=== PATIENT | female | born 1985 | race Caucasian/White ===

== ENCOUNTER 2022-01-05 05:53 | Emergency (ER) | payer OTHER, SELFPAY ==
[2022-01-05 05:54] VITALS: BP 115/84; PULSE 84; RESP 15; TEMP 36.5; O2SAT 100; BMI 24.8
[2022-01-05 05:58] VITALS: O2SAT 97
--- NOTE | 2022-01-05 06:02 | RAD_ITS ---
STUDY: X-RAY CHEST REASON FOR EXAM: Female, 36 years old. Cough, change in voice TECHNIQUE: XR Chest 2 Views COMPARISON: None FINDINGS: There is no demonstrated pleural abnormality. Normal size heart. Normal mediastinum and wilmer. Normal visualized pulmonary arteries. Normal visualized aortic arch and descending thoracic aorta. Normal visualized thoracic spine. Normal visualized ribs, clavicles, and shoulders. There is no demonstrated abnormality of the visualized soft tissue structures of the upper abdomen. RAD/Chest PA and Lateral IMPRESSION: There are no acute findings. Electronically Signed: Victor Hugo Negron MD at 14:20 EDT ,
--- NOTE | 2022-01-05 06:08 | EDS_ITS ---
HPI HPI - URI History of Present Illness Chief Complaint: Cough Detail of Chief Complaint: Cough x4 days, change in voice Informant: patient Onset/Context/Timing Onset: Days (Onset of illness 4 days ago) Context: Sudden Onset Timing: Continuous and Waxes and wanes Quality: Hoarse voice, barky cough, productive cough in a.m. only Location: Respiratory Current Severity: Mild Maximum Severity: Moderate Worsened by: Not Worsened By Swallowing, Eating Solids and Drinking Liquids Relieved by: Not Relieved By Tylenol and NSAIDs Associated Symptoms Associated Symptoms: Positive for Nasal Congestion and Productive Cough; Negative for Headache, Sinus Pressure, Myalgias, Nausea, Vomiting, Diarrhea, Shortness of Breath, Chest Pain, Nonproductive cough and Hemoptysis Narrative Narrative: Patient is a 36-year-old female with no significant past medical history. She is a non-smoker. She presents with cough that started 4 days ago. She states the cough is productive in the morning, only. She denies documented fever. She has mild nasal congestion. She denies headache. She also reports hoarse voice and barky cough. She has no problems with swallowing. She denies chest discomfort. She denies dyspnea or dyspnea on exertion. She denies history of VTE. She denies leg pain, swelling discoloration. She denies GI symptoms. She denies urologic symptoms. She denies recent ill contacts. She has been immunized for the flu and COVID. Prior similar symptoms: No Recent Illness/Hospitalization: No ROS ROS ED Constitutional Constitutional ED: Denies chills, fever(s), subjective, sweats or weight loss Eyes Eyes: Denies blurry vision, change in vision or diplopia ENT ENT ED: Reports sore throat; Denies ear pain or rhinorrhea Cardiovascular Cardiovascular: Denies chest pain, orthopnea, palpitations or paroxysmal nocturnal dyspnea Respiratory/Chest Respiratory/Chest: Reports cough and sputum; Denies dyspnea, dyspnea on exertion, orthopnea or paroxysmal nocturnal dyspnea Gastrointestinal Gastrointestinal: Denies abdominal pain, diarrhea, nausea or vomiting Genitourinary Genitourinary ED: Reports LMP (females 10-50) Details: Comment: (Menses started November 13. Normal duration and flow.); Denies dysuria, hematuria or urinary frequency Musculoskeletal Musculoskeletal: Denies back pain, myalgias or neck pain Integumentary Denies rash Neurologic Neurologic: Denies headache(s) or weakness Hematologic/Lymphatic Hematologic/Lymphatic: Denies easy bleeding or easy bruising PFSH PFSH Medical History no medical history no medical history Home Medications NK 01/05/22 [History Last Taken Unknown] hydrocodone-homatropine [Hycodan] 5 ml PO Q6H PRN 3 Days #60 ml 01/05/22 [Rx Last Taken Unknown] Allergy/AdvReac Type Severity Reaction Status Date / Time No Known Allergies Allergy Verified 01/05/22 05:56 Social History (Updated 01/05/22 @ 06:[address] iVjay Wallace MD) household members: spouse Smoking Status: Never smoker substance use type: does not use EXAM Physical Exam Const Vital Signs: 01/05/22 05:54 01/05/22 05:58 Temperature 97.7 F L Temperature Source Temporal Pulse Rate 84 Respiratory Rate 15 Respiratory Effort Normal Non-Labored Respiratory Depth Normal Respiratory Pattern Normal Blood Pressure 115/84 H Blood Pressure Mean 94 Pulse Ox 100 Oxygen Delivery Method Room Air Room Air Positive well nourished and well developed General Appearance ED: well developed and NAD; Negative for cyanotic, diaphoretic or pallor HEENT Reports moist mucous membranes normocephalic and atraumatic External Ear: external ears normal and no preauricular adenopathy External Auditory Canal: EAC's normal Tympanic Membrane ED: Yes TM's normal bilaterally Throat: posterior oropharynx normal Eyes PERRL and EOMs intact bilaterally General Eye ED: Negative for pale conjunctiva or scleral icterus Neck No no lymphadenopathy, supple, no meningeal signs and no JVD Neck Narrative: Trachea is midline. There is no inspiratory or expiratory stridor. General: lymphadenopathy anterior cervical (1 node noted right and left side. Node is mobile.); Negative for anterior neck swelling Resp normal respiratory effort and clear to auscultation bilaterally Cardio S1 normal heart sound, S2 normal heart sound and no murmurs Rate: regular rate Rhythm: regular rhythm GI non-tender, non-distended and no masses Auscultation: normoactive bowel sounds Palpation: soft Extremity normal to inspection General Extremety ED: Negative for cyanosis General Extremity: Negative for cyanosis Neuro oriented x3 and CN's II-XII intact bilaterally Sensorium / Orientation: alert Psych mental status grossly normal Skin General Skin Exam: Negative for jaundice or pallor Lesions: no lesions Rashes: no rashes MDM MDM MDM Narrative Medical decision making narrative: With minimal nasal congestion cough hoarse voice cervical lymphadenopathy suspect this is a viral upper respiratory infection. Will screen for COVID and will obtain chest x-ray. COVID test is negative. With a normal chest x-ray, negative COVID and r espiratory symptoms with bilateral cervical lymphadenopathy and hoarse voice suspect acute viral illness. Radiography Diagnostic Testin view chest x-ray independently interpreted by me at 0616 is normal. Cardiac silhouette and size normal. Perihilar region normal. Lung parenchyma normal. Osseous structures normal. Awaiting COVID swab result Discharge Plan Triage Chief Complaint: Cough ED Provider: Vijay Wallace Dx/Rx/DC Orders Clinical Impression: Acute upper respiratory infection, Anterior cervical adenopathy Instructions: ED URI, Viral, No Abx (Adult) Prescriptions: New hydrocodone-homatropine [Hycodan] 5-1.5 mg/5 mL (5 mL) syrup 5 ml PO Q6H PRN (Reason: cough) 3 Days Qty: 60 RF: 0 No Action NK RF: 0 Primary Care Provider: Care Physician,No Primary Referrals: Fast,Carla, DO [NON-STAFF] - 1 Week if not improving Care Physician,No Primary [Primary Care Provider] - Disposition Disposition: Home, Self Care
[2022-01-05 06:53] VITALS: BP 115/84; PULSE 84; RESP 15; O2SAT 100
== END 2022-01-05 07:06 | disposition home or self-care (01) ==
PROVIDERS: Emergency Provider Emergency Medicine; Visit Provider Emergency Medicine
DX: J06.9 Acute upper respiratory infection, unspecified (principal); R59.0 Localized enlarged lymph nodes
CPT/HCPCS: 71046; 87811; 99282

== ENCOUNTER 2023-03-05 19:59 | Emergency (ER) | payer OTHER, SELFPAY ==
[2023-03-05 20:00] VITALS: BP 124/85; PULSE 85; RESP 16; TEMP 36.6; O2SAT 98; BMI 21.8
--- NOTE | 2023-03-05 20:12 | US_ITS ---
INDICATION: preg, pelvic pain, ttp RLQ COMPARISON: None. FINDINGS: 83 grayscale ultrasound images obtained both transabdominally and transvaginally, including cinematic series, demonstrate apparent intrauterine measuring at 0.23 cm crown-rump length which corresponds to 6 weeks +0 days. However, no cardiac activity is appreciated. There appears to be yolk sac. Adequate amniotic fluid for gestational age. Placenta cannot be definitively identified at this gestational age. Uterine myometrium demonstrates rounded mixed shadowing hypoechoic lesions, measuring up to 3 cm on the left, consistent with uterine fibroids. Dominant hypoechoic 1.8 cm right ovarian lesion likely corpus luteum. Few small bilateral ovarian follicles are noted. Small amount of cul-de-sac free fluid. US/Transvaginal w/Preg US IMPRESSION: Apparent single intrauterine measuring at 0.23 cm crown-rump length which corresponds to 6 weeks +0 days. However, no cardiac activity is appreciated. Recommend correlation with serial quantitative beta-hCG values as well as short interval follow-up ultrasound to confirm viable intrauterine . Electronically Signed: Marco Dias MD at 21:28 EDT ,
--- NOTE | 2023-03-05 20:13 | EDS_ITS ---
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 She is having upper epigastric pain and lower abdominal pain as well. Nausea, couple episodes of dry heaving in the last couple weeks but mostly just nausea and decreased appetite. No syncopal episodes or dyspnea. No urinary symptoms. PFSH PFSH Medical History no medical history no medical history Home Medications NK 01/05/22 [History Last Taken Unknown] hydrocodone-homatropine 5 mg-1.5 mg/5 mL (5 mL) oral syrup (Hycodan) 5 ml PO Q6H PRN cough 3 days #60 mL 01/05/22 [Rx Last Taken Unknown] Allergy/AdvReac Type Severity Reaction Status Date / Time No Known Allergies Allergy Verified 03/05/23 20:02 Social History household members: spouse Smoking Status: Never smoker substance use type: does not use ROS ROS ED Constitutional Constitutional ED: Denies chills or fever(s) Eyes Eyes: Denies change in vision or diplopia ENT ENT ED: Denies rhinorrhea or sore throat Cardiovascular Cardiovascular: Denies chest pain or palpitations Respiratory/Chest Respiratory/Chest: Denies cough or dyspnea Gastrointestinal Gastrointestinal: Reports abdominal pain; Denies diarrhea, nausea or vomiting Genitourinary Genitourinary ED: Denies dysuria, hematuria or vaginal bleeding Musculoskeletal Musculoskeletal: Denies back pain or neck pain Integumentary Denies abscess or rash Neurologic Neurologic: Denies headache(s), paresthesias or weakness Psychiatric Psychiatric: Denies anxiety or suicidal thoughts EXAM Physical Exam Const Vital Signs: 03/05/23 20:00 Temperature 98 F Temperature Source Temporal Pulse Rate 85 Respiratory Rate 16 Blood Pressure 124/85 H Blood Pressure Mean 98 Pulse Ox 98 Oxygen Delivery Method Room Air Positive well nourished and well developed General Appearance ED: well developed and NAD HEENT Reports moist mucous membranes normocephalic and atraumatic Eyes PERRL and EOMs intact bilaterally Neck full ROM and supple Resp normal respiratory effort and clear to auscultation bilaterally Cardio regular rate, regular rhythm and no murmurs GI non-distended GI Narrative: Mildly tender in epigastrium, moderate-severe tenderness in the right lower quadrant/pelvis, less tender in the suprapubic area. No guarding or rebound tenderness anywhere. Nontender throughout the left side. Auscultation: normoactive bowel sounds Palpation: soft Speculum Exam - Vagina: Negative for vaginal bleeding Back/Spine no CVA tenderness General Back: other FROM Extremity normal to inspection General Extremety ED: Negative for edema, pulses abnormal or tenderness General Extremity: Negative for edema or pulses abnormal Neuro oriented x3, CN's II-XII intact bilaterally and no sensory deficits noted Sensorium / Orientation: awake and alert Motor Exam: strength 5/5 throughout Skin no rashes or lesions noted and no wounds MDM MDM MDM Narrative Medical decision making narrative: Labs and urinalysis were obtained and is patient with tenderness in the right lower quadrant and early indeterminate , primarily to rule out ectopic . Beta-hCG quantitative just over 7600, and transvaginal ultrasound obtained, it shows a single live intrauterine crown-rump length is consistent with about 6-week but no heart tones were able to be measured. She will need to follow-up for repeat quantitative hCG level. Of note, she has a 1.3 cm right ovarian cyst which is consistent with a corpus luteal cyst, which may be related to her discomfort. I think she has much less likely to have appendicitis. She is comfortable she is able to walk without difficulty she does not have a significant leukocytosis. Furthermore, urinalysis unremarkable, she not having any bleeding right now, and her vital signs are normal. Stable for discharge at this time. Close outpatient follow- up with her OB recommended. Discussed with Maylin Stout who is on and agrees, they will have her get a repeat hCG quantitative in 2 days and follow-up in the office. Lab Data Attestation: I reviewed the patient's lab results. Labs: Laboratory Results - last 24 hr 03/05/23 03/05/23 20:25 21:10 WBC 10.8 RBC 4.15 L Hgb 11.2 L Hct 34.0 L MCV 81.9 MCH 27.0 MCHC 32.9 RDW Std Deviation 50.2 H RDW Coeff of Fuad 16.6 H Plt Count 275 MPV 10.0 Immature Gran % (Auto) 0.300 Neut % (Auto) 73.8 H Lymph % (Auto) 15.9 L Bonner % (Auto) 9.3 Eos % (Auto) 0.4 Baso % (Auto) 0.3 Absolute Neuts (auto) 8.0 H Absolute Lymphs (auto) 1.71 Nucleated RBC % 0 Sodium 135 L Potassium 3.5 Chloride 104 Carbon Dioxide 26.0 Anion Gap 5 BUN 9 Creatinine 0.56 Estim Creat Clear Calc 155.23 Est GFR (MDRD) Af Amer 156 Est GFR (MDRD) Non-Af 129 BUN/Creatinine Ratio 16.0 Glucose 118 H Calcium 8.7 Urine Color Yellow Urine Clarity Sl. Cloudy Urine pH 8.0 Ur Specific [place] 1.015 Urine Protein 15 H Urine Glucose (UA) Normal Urine Ketones 50 H Urine Occult Blood Negative Urine Nitrite Negative Urine Bilirubin Negative Urine Urobilinogen Normal Ur Leukocyte Esterase Negative Radiography Diagnostic Testing: Clinical Impression(s) from Imaging Studies Obstetrics Ultrasound 03/05/23 20:12 IMPRESSION: Apparent single intrauterine measuring at 0.23 cm crown-rump length which corresponds to 6 weeks +0 days. However, no cardiac activity is appreciated. Recommend correlation with serial quantitative beta-hCG values as well as short interval follow-up ultrasound to confirm viable intrauterine . Electronically Signed: Marco Dias MD at 21:28 EDT , Discharge Plan Triage Chief Complaint: Female C/O ED Provider: Alex Moran Dx/Rx/DC Orders Clinical Impression: Pelvic pain during in first trimester, antepartum Instructions: ED Abdominal Pain, Early Prescriptions: No Action NK hydrocodone-homatropine [Hycodan] 5-1.5 mg/5 mL (5 mL) syrup 5 ml PO Q6H PRN (Reason: cough) 3 Days Qty: 60 0RF Primary Care Provider: Care Physician,No Primary Referrals: Zara Sadler MD [Med Staff - Active Staff] - 2 Days (In the lab, not the office; they will call you for office appointment) Activity Restrictions/Additional Instructions: Repeat blood test in the lab at [facility] on Sunday. Disposition Disposition: Home, Self Care
[2023-03-05] MEDS: Mag Hydrox/Al Hydrox/Simeth 30 ML UDC PO (20:21)
[2023-03-05] MEDS: Ondansetron 4 MG/2 ML Vial IV (20:21)
[2023-03-05 20:49] LABS: Absolute Lymphocyte Count 1.71 X10^3/uL (0.83-4.51); Basophil# 0.03 X10^3/uL; Basophil% 0.3 % (0-1); Eosinophil# 0.04 X10^3/uL; Eosinophils% 0.4 % (0-5); Hemoglobin 11.2 g/dL (12.0-15.0); Lymphocyte # 1.71 X10^3/ul (0.83-4.51); Lymphocyte % 15.9 % (19-41); Mean Corp Hgb Conc 32.9 g/dL (32-36); Mean Corpuscular Volume 81.9 fL (81-99); Monocyte% 9.3 % (0-10); NRBC Flagged by Analyzer 0 % (0-5); Neutrophil # 7.97 X10^3/uL (2.7-7.7); Neutrophil % 73.8 % (47-70); Platelet Count 275 K/mm3 (150-450); RBC Distribution Width CV 16.6 % (11.6-14.6); RBC Distribution Width SD 50.2 fl (35.1-43.9); Red Blood Count 4.15 M/mm3 (4.2-5.4); White Blood Count 10.8 K/mm3 (4.4-11.0)
[2023-03-05 21:05] LABS: Anion Gap 5 (5-15); BUN 9 mg/dL (7-18); Calcium,Total 8.7 mg/dL (8.5-10.1); Chloride 104 mmol/L (98-107); Creatinine, Serum 0.56 mg/dL (0.55-1.02); EST Glomerular Filtration Rate 129 mL/min (>60); Est Glom Filt Rate - Afr Amer 156 mL/min (>60); Estimated Creatinine Clearance 155.23 ml/min; Glucose 118 mg/dL (74-106); Potassium 3.5 mmol/L (3.5-5.1); Sodium Level 135 mmol/L (136-145)
[2023-03-05 21:15] LABS: Mucous, Urine 0 SEEN /hpf (<or=2+); Red Blood Cells-Urine 0 SEEN /hpf (0-5)
[2023-03-05 21:16] LABS: Color, Urine Yellow (Yellow); Glucose, Dipstick Normal (Normal); Ketone-Dipstick 50 mg/dl (Negative); Leukocyte Esterase-Dipstick Negative /ul (Negative); Nitrite-Dipstick Negative (Negative); Occult Blood-Urine Negative /ul (Negative); Protein-Dipstick 15 mg/dl (Negative); Specific Gravity, Urine 1.015 (1.002-1.030); Urine Bilirubin Dipstick Negative (Negative); Urine Clarity Sl. Cloudy (Clear); Urine Urobilinogen Normal (Normal)
[2023-03-05 21:41] LABS: hCG Titer Quant., Serum 7657 mIU/mL (1-3)
[2023-03-05 21:46] LABS: Bacteria 1+ /hpf (None Seen); Squamous Epithelial Cells - UA 0-5 SEEN /hpf (5-10); White Blood Cells 0-5 SEEN /hpf (0-5)
[2023-03-05] MEDS: Acetaminophen 500 MG Tablet 1000 MG PO (21:47)
== END 2023-03-05 22:08 | disposition home or self-care (01) ==
PROVIDERS: Emergency Provider Emergency Medicine; Visit Provider Emergency Medicine
DX: O26.891 Other specified pregnancy related conditions, first trimester (principal); R10.2 Pelvic and perineal pain; R10.13 Epigastric pain; Z3A.01 Less than 8 weeks gestation of pregnancy
CPT/HCPCS: 76817; 80048; 81001; 84702; 85025; 96374; 99284; A4216; J2405

== ENCOUNTER 2023-06-14 18:27 | Emergency (ER) | payer OTHER, SELFPAY ==
[2023-06-14 18:29] VITALS: BP 131/91; PULSE 78; RESP 18; TEMP 36.3; O2SAT 97; BMI 22.5
--- NOTE | 2023-06-14 21:57 | EX.ED.DYSGE1 ---
HPI History of Present Illness Chief Complaint: Fall Informant: patient Narrative Narrative: 38-year-old female presenting to the emergency room with a chief complaint of fall. Patient states she is approximately 20 weeks and at work today got tangled in a cord and fell down. She notes bilateral knee contusions and states that she caught herself with her forearms and does not believe she struck her abdomen. She has not had any leakage of fluid or vaginal bleeding. 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 She is reportedly Rh+. PFSH PFSH Medical History no medical history Home Medications NK 01/05/22 [History Last Taken Unknown] hydrocodone-homatropine 5 mg-1.5 mg/5 mL (5 mL) oral syrup (Hycodan) 5 ml PO Q6H PRN cough 3 days #60 mL 01/05/22 [Rx Last Taken Unknown] Allergy/AdvReac Type Severity Reaction Status Date / Time No Known Allergies Allergy Verified 06/14/23 18:29 Social History household members: spouse Smoking Status: Never smoker substance use type: does not use ROS ROS ED Constitutional Constitutional ED: Denies chills or weight loss Eyes Eyes: Denies change in vision or diplopia ENT ENT ED: Denies ear pain, rhinorrhea or sore throat Cardiovascular Cardiovascular: Denies chest pain, orthopnea, palpitations or racing heartbeat Respiratory/Chest Respiratory/Chest: Denies cough, dyspnea or orthopnea Gastrointestinal Gastrointestinal: Denies abdominal pain, diarrhea, nausea or vomiting Genitourinary Genitourinary ED: Denies dysuria, hematuria or urinary frequency Musculoskeletal Musculoskeletal: Reports other Details: Bilateral knee pain and contusion ; Denies arthralgias or myalgias Integumentary Denies abscess or rash Neurologic Neurologic: Denies headache(s) or weakness Psychiatric Psychiatric: Denies anxiety, depression, suicidal ideation or suicidal thoughts Endocrine Endocrinology: Denies polydipsia, polyphagia or polyuria Allergic/Immunologic Allergic/Immunologic ED: Denies mouth swelling, tongue swelling or urticaria EXAM Physical Exam Const Vital Signs: 06/14/23 18:29 06/14/23 20:03 Temperature 97.4 F L Temperature Source Temporal Pulse Rate 78 Respiratory Rate 18 Respiratory Effort Normal Non-Labored Respiratory Depth Normal Respiratory Pattern Normal Blood Pressure 131/91 H Blood Pressure Mean 104 Pulse Ox 97 Oxygen Delivery Method Room Air Room Air Positive well nourished and well developed General Appearance ED: well developed HEENT Reports normocephalic, head/scalp atraumatic and moist mucous membranes Eyes PERRL and EOMs intact bilaterally Neck no lymphadenopathy, supple and no JVD Resp normal respiratory effort and clear to auscultation bilaterally Cardio regular rate, regular rhythm and no murmurs GI normal to inspection, nondistended, normoactive bowel sounds and non-tender GI Narrative: The uterus and abdomen are nontender with no bruising. Palpable movement. Palpation: soft Back/Spine no CVA tenderness and normal ROM Extremity Extremity Narrative: There are bilateral knee contusions. No significant joint effusions noted. Ligaments appear stable. She is able to bear weight without difficulty. General Extremety ED: Negative for edema General Extremity: Negative for edema Neuro oriented x3 and CN's II-XII intact bilaterally Sensorium / Orientation: alert Motor Exam: strength 5/5 throughout Psych mental status grossly normal Mood & Affect: Negative for depressed or tearful Skin no rashes or lesions noted and no wounds MDM MDM MDM Narrative Medical decision making narrative: Bedside ultrasound demonstrates good movement. heart rate is 140. The abdomen is nontender. Patient's been feeling the baby move. No leakage of fluid or bleeding. This point patient be discharged home return if worsening or concerns Discharge Plan Triage Chief Complaint: Fall ED Provider: Sameer Li Dx/Rx/DC Orders Clinical Impression: Second trimester , Fall, Contusion of knee, left, Contusion of knee, right Instructions: ED Contusion, Lower Extremity Prescriptions: No Action NK hydrocodone-homatropine [Hycodan] 5-1.5 mg/5 mL (5 mL) syrup 5 ml PO Q6H PRN (Reason: cough) 3 Days Qty: 60 0RF Primary Care Provider: Care Physician,No Primary Referrals: Zara Sadler MD [Med Staff - Active Staff] - Keep Jennifer appointment Care Physician,No Primary [Primary Care Provider] - Disposition Disposition: Home, Self Care Discharge Date/Time: 06/14/23 22:12
== END 2023-06-14 22:12 | disposition home or self-care (01) ==
PROVIDERS: Emergency Provider Emergency Medicine; Visit Provider Emergency Medicine
DX: O9A.212 Injury, poisoning and certain other consequences of external causes complicating pregnancy, second trimester (principal); S80.02XA Contusion of left knee, initial encounter; S80.01XA Contusion of right knee, initial encounter; O09.512 Supervision of elderly primigravida, second trimester; W01.0XXA Fall on same level from slipping, tripping and stumbling without subsequent striking against object, initial encounter
CPT/HCPCS: 99282

== ENCOUNTER 2023-07-02 01:48 | Emergency (ER) | payer OTHER, SELFPAY ==
[2023-07-02 01:49] VITALS: BP 136/89; PULSE 87; RESP 16; TEMP 36.2; O2SAT 99; BMI 23.6
[2023-07-02 02:06] LABS: Mucous, Urine 0 SEEN /hpf (<or=2+)
[2023-07-02 02:08] LABS: Color, Urine Yellow (Yellow); Glucose, Dipstick Normal (Normal); Ketone-Dipstick Negative (Negative); Leukocyte Esterase-Dipstick 500 /ul (Negative); Nitrite-Dipstick Negative (Negative); Occult Blood-Urine 250 /ul (Negative); Protein-Dipstick 100 mg/dl (Negative); Urine Bilirubin Dipstick Negative (Negative); Urine Clarity Sl. Cloudy (Clear); Urine Urobilinogen Normal (Normal)
--- NOTE | 2023-07-02 02:08 | EDS_ITS ---
HPI History of Present Illness Chief Complaint: Complaint Informant: patient Narrative Narrative: Very pleasant 38-year-old female presenting to the emergency department with concern for urinary tract infection. Patient states that she went to her son's hockey game shortly after began to have urinary frequency and dysuria. 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 She states she is developed some fatigue. No fevers. No vomiting. No back pain. She is currently sees Dr. Longoria. [facility] Medical History Pyelonephritis Home Medications NK 01/05/22 [History Last Taken Unknown] cephalexin 500 mg capsule 500 mg PO TID #15 caps 07/02/23 [Rx Last Taken Unknown] phenazopyridine 200 mg tablet (Pyridium) 200 mg PO TID PRN pain 6 doses #6 tabs 07/02/23 [Rx Last Taken Unknown] Allergy/AdvReac Type Severity Reaction Status Date / Time No Known Allergies Allergy Verified 07/02/23 01:49 Social History household members: spouse Smoking Status: Never smoker substance use type: does not use ROS ROS ED ROS Narrative Generalized fatigue Constitutional Constitutional ED: Denies chills, fever(s) or weight loss Eyes Eyes: Denies change in vision or diplopia ENT ENT ED: Denies ear pain, rhinorrhea or sore throat Cardiovascular Cardiovascular: Denies chest pain, orthopnea, palpitations or racing heartbeat Respiratory/Chest Respiratory/Chest: Denies cough, dyspnea or orthopnea Gastrointestinal Gastrointestinal: Denies abdominal pain, diarrhea, nausea or vomiting Genitourinary Genitourinary ED: Reports dysuria and urinary frequency; Denies hematuria Musculoskeletal Musculoskeletal: Denies arthralgias or myalgias Integumentary Denies abscess or rash Neurologic Neurologic: Denies headache(s) or weakness Psychiatric Psychiatric: Denies anxiety, depression, suicidal ideation or suicidal thoughts Endocrine Endocrinology: Denies polydipsia, polyphagia or polyuria Allergic/Immunologic Allergic/Immunologic ED: Denies mouth swelling, tongue swelling or urticaria EXAM Physical Exam Const Vital Signs: 07/02/23 01:49 Temperature 97.1 F L Temperature Source Temporal Pulse Rate 87 Respiratory Rate 16 Blood Pressure 136/89 H Blood Pressure Mean 104 Pulse Ox 99 Positive well nourished and well developed General Appearance ED: well developed HEENT Reports normocephalic, head/scalp atraumatic and moist mucous membranes Eyes PERRL and EOMs intact bilaterally Neck no lymphadenopathy, supple and no JVD Resp normal respiratory effort and clear to auscultation bilaterally Cardio regular rate, regular rhythm and no murmurs GI normal to inspection, nondistended, normoactive bowel sounds and non-tender Palpation: soft Back/Spine no CVA tenderness and normal ROM Extremity normal to inspection General Extremety ED: Negative for edema General Extremity: Negative for edema Neuro oriented x3 and CN's II-XII intact bilaterally Sensorium / Orientation: alert Motor Exam: strength 5/5 throughout Psych mental status grossly normal Mood & Affect: Negative for depressed or tearful Skin no rashes or lesions noted and no wounds MDM MDM MDM Narrative Medical decision making narrative: Urinalysis demonstrates 50-100 white cells rare bacteria 5-10 red cells. This will be sent for culture. Clinically patient has acute cystitis. I Shelly place her on Pyridium as well as Keflex. heart tones to be checked by nursing. Follow-up as needed return if worsening or concerns History & Record Review Additional record(s) reviewed:: Prior ED visit Lab Data Attestation: I reviewed the patient's lab results. Labs: Laboratory Results - last 24 hr 07/02/23 02:00 Urine Color Yellow Urine Clarity Sl. Cloudy Urine pH 7.0 Ur Specific [place] 1.010 Urine Protein 100 H Urine Glucose (UA) Normal Urine Ketones Negative Urine Occult Blood 250 H Urine Nitrite Negative Urine Bilirubin Negative Urine Urobilinogen Normal Ur Leukocyte Esterase 500 H Urine RBC 5-10 SEEN Urine WBC 50-100 SEEN Ur Squamous Epith Cells 0-5 SEEN Urine Bacteria RARE Urine Mucus 0 SEEN Discharge Plan Triage Chief Complaint: Complaint ED Provider: Sameer Li Dx/Rx/DC Orders Clinical Impression: Acute cystitis, Second trimester Instructions: UTIs Women Prescriptions: New phenazopyridine [Pyridium] 200 mg tablet 200 mg PO TID PRN (Reason: pain) Qty: 6 0RF cephalexin 500 mg capsule 500 mg PO TID Qty: 15 0RF No Action NK Primary Care Provider: Care Physician,No Primary Referrals: Zara Sadler MD [Med Staff - Active Staff] - Keep Jennifer appointment Care Physician,No Primary [Primary Care Provider] - Disposition Disposition: Home, Self Care
[2023-07-02 02:18] LABS: Red Blood Cells-Urine 5-10 SEEN /hpf (0-5); White Blood Cells 50-100 SEEN /hpf (0-5)
[2023-07-02 02:19] LABS: Bacteria RARE /hpf (None Seen); Squamous Epithelial Cells - UA 0-5 SEEN /hpf (5-10)
[2023-07-02] MEDS: Phenazopyridine 95 MG Tablet 190 MG PO (02:31)
[2023-07-02] MEDS: Cephalexin 250 MG Capsule 500 MG PO (02:31)
[2023-07-02 02:40] VITALS: PULSE 89; RESP 16; TEMP 37.7
== END 2023-07-02 02:41 | disposition home or self-care (01) ==
PROVIDERS: Emergency Provider Emergency Medicine; Visit Provider Emergency Medicine
DX: O23.12 Infections of bladder in pregnancy, second trimester (principal); N30.00 Acute cystitis without hematuria; Z87.440 Personal history of urinary (tract) infections; Z3A.00 Weeks of gestation of pregnancy not specified
CPT/HCPCS: 81001; 87077; 87086; 87088; 87186; 99283

== ENCOUNTER 2023-10-26 04:45 | Outpatient (CLI) | payer OTHER, SELFPAY ==
[2023-10-26 05:14] VITALS: BP 117/75; PULSE 63; RESP 18; TEMP 36.9
[2023-10-26 05:28] VITALS: BP 111/74; PULSE 65
[2023-10-26 05:43] VITALS: BP 106/72; PULSE 67
[2023-10-26 05:59] VITALS: BP 102/69; PULSE 69
[2023-10-26 06:14] VITALS: BP 114/73; PULSE 65
[2023-10-26 06:17] VITALS: BMI 26.2
[2023-10-26 06:29] VITALS: BP 107/70; PULSE 61
[2023-10-26 07:07] LABS: Hematocrit 32.2 % (37-47); Mean Corp Hgb Conc 31.1 g/dL (32-36); Mean Corpuscular Hgb 25.3 pg (27.0-32.0); Mean Corpuscular Volume 81.5 fL (81-99); Mean Platelet Vol. 11.7 fl (6.2-12.0); Platelet Count 214 K/mm3 (150-450); RBC Distribution Width CV 14.7 % (11.6-14.6); RBC Distribution Width SD 43.5 fl (35.1-43.9); Red Blood Count 3.95 M/mm3 (4.2-5.4); White Blood Count 6.6 K/mm3 (4.4-11.0)
[2023-10-26 07:12] LABS: Color, Urine Yellow (Yellow); Glucose, Dipstick Normal (Normal); Ketone-Dipstick Negative (Negative); Leukocyte Esterase-Dipstick 500 /ul (Negative); Nitrite-Dipstick Negative (Negative); Occult Blood-Urine 25 /ul (Negative); Protein-Dipstick 30 mg/dl (Negative); Specific Gravity, Urine 1.015 (1.002-1.030); Urine Bilirubin Dipstick Negative (Negative); Urine Clarity Sl. Cloudy (Clear); Urine Urobilinogen Normal (Normal)
[2023-10-26 07:22] LABS: AST(SGOT) 15 U/L (15-37); Alanine Aminotransfer ALT/SGPT 13 U/L (13-56); EST Glomerular Filtration Rate 148 mL/min (>60); Est Glom Filt Rate - Afr Amer 179 mL/min (>60); Estimated Creatinine Clearance 180.79 ml/min; Uric Acid 4.2 mg/dL (2.6-6.0)
[2023-10-26 07:27] LABS: Protein, Urine (Random) 20.3 mg/dL (<11.9); Protein:Creat Ratio 267 mg/g CRE (0-200)
--- NOTE | 2023-10-26 07:30 | OB.TRI.HP_ITS ---
HPI - General General Date of Service: 10/26/23 HPI Narrative NYDIA CLAROS, is a 38 F who presents for headache with vision change and some LLQ pain. Denies VB/LOF but does report some ctxs. Maternal Data Information Final KRAIG: 11/02/23 Gestational age: 39 weeks PFSH PFSH Home Medications ferrous sulfate 325 mg (65 mg iron) tablet (iron) 325 mg PO DAILY 10/26/23 [History Last Taken Unknown] [id number] 1 mg tablet 1 tab PO DAILY 10/26/23 [History Last Taken Unknown] Allergy/AdvReac Type Severity Reaction Status Date / Time No Known Allergies Allergy Verified 10/26/23 05:53 NST FHR Rate Baby A Baseline: 130 Variability:: Moderate Accelerations:: 15 x 15 Decelerations:: None NST Reactive:: Yes Uterine Activity:: Irregular Assessment & Plan (1) Headache in : QUALIFIERS: Trimester: third trimester Qualified Code(s): O26.893 - Other specified related conditions, third trimester; R51.9 - Head ache, unspecified PLAN: Plan BP's & preE labs normal. Patient's headache and vision changes have resolved. She declined Tylenol. The LLQ pain seems to be related to ctxs. NST reactive. D/c home and follow up in office as scheduled. Reviewed preE, labor & FM precautions.
== END 2023-10-26 07:40 | disposition home or self-care (01) ==
LOC: WPOUT 05:11 → WP 05:11
PROVIDERS: Visit Provider Obstetrics & Gynecology
DX: O26.893 Other specified pregnancy related conditions, third trimester (principal); R51.9 Headache, unspecified; Z3A.39 39 weeks gestation of pregnancy; R10.32 Left lower quadrant pain
CPT/HCPCS: 36415; 59025; 59050; 81002; 82565; 82570; 84156; 84450; 84460; 84550; 85027; 99221; G0378

== ENCOUNTER 2023-10-27 09:20 | Inpatient (IN) | payer OTHER, SELFPAY ==
[2023-10-27] VITALS (45 sets, daily range): BP systolic 90–140; BP diastolic 54–87; PULSE 52–141; RESP 16; TEMP 37.1–38.5; O2SAT 90–100; BMI 26.2
[2023-10-27 10:27] LABS: Absolute Lymphocyte Count 1.22 X10^3/uL (0.83-4.51); Absolute Neutrophil Count 6.8 X10^3/uL (2.0-7.7); Basophil# 0.02 X10^3/uL; Basophil% 0.2 % (0-1); Eosinophil# 0.03 X10^3/uL; Eosinophils% 0.3 % (0-5); Hematocrit 36.3 % (37-47); Hemoglobin 11.6 g/dL (12.0-15.0); Lymphocyte # 1.22 X10^3/ul (0.83-4.51); Lymphocyte % 13.2 % (19-41); Mean Corpuscular Volume 81.4 fL (81-99); Mean Platelet Vol. 11.8 fl (6.2-12.0); Monocyte# 1.09 X10^3/uL; Monocyte% 11.8 % (0-10); NRBC Flagged by Analyzer 0 % (0-5); Neutrophil # 6.84 X10^3/uL (2.7-7.7); Platelet Count 251 K/mm3 (150-450); RBC Distribution Width CV 15.2 % (11.6-14.6); RBC Distribution Width SD 44.7 fl (35.1-43.9); Red Blood Count 4.46 M/mm3 (4.2-5.4); White Blood Count 9.3 K/mm3 (4.4-11.0)
[2023-10-27] MEDS: Lactated Ringers 1,000 ML 50 ML IV (11:00)
[2023-10-27 11:04] LABS: Syphilis Antibodies Non-reactive
[2023-10-27] MEDS: Oxytocin 15 Units/NS 250ml 15 UNITS/250 ML IV.SOLN 2 UNITS IV (11:23)
[2023-10-27] MEDS: LACTATED RINGERS 500 ML 999 ML IV ×2 (12:31→14:43)
--- NOTE | 2023-10-27 12:43 | PCM.HP.OB ---
HPI - General General Date of Admission: 10/27/23 HPI Narrative NYDIA CLAROS, is a 38 F @ 39+ weeks who presents c/o SROM at approx 6:20 am on 10/27/23 , pt found to be 3cm and ruptured on admision. PFSH PFSH Medical History (Updated 10/27/23 @ 12:[address] Zara Longoria MD) Kidney stone Pyelonephritis Home Medications ferrous sulfate 325 mg (65 mg iron) tablet (iron) 325 mg PO DAILY Anemia 10/27/23 [History Last Taken 10/26/23] vitamin#30 30 mg iron-10 mg iron-folic acid 1 mg-omg3 capsule (OB Complete With Dha) cap PO 10/27/23 [History Last Taken 10/26/23] Allergy/AdvReac Type Severity Reaction Status Date / Time No Known Allergies Allergy Verified 07/02/23 01:49 Family History (Updated 10/27/23 @ 11:20 by Annita Santiago) Grandfather Diabetes Grandmother Diabetes Hypertension Social History household members: spouse Smoking Status: Never smoker substance use type: does not use History Elective abortions Hx Para 1 Spontaneous abortions Hx # Term Pregnancies Ectopic pregnancies Hx # Pregnancies Multiple births # of living children NST FHR Rate Baby A Baseline: 140 Variability:: Moderate Accelerations:: 15 x 15 Decelerations:: None NST Reactive:: Yes FHR Category:: Category I Uterine Activity:: irregular (On admission) Vital Signs Vital Signs Vital Signs: 10/27/23 10:19 10/27/23 10:19 10/27/23 10:51 Temperature Temperature Source Pulse Rate 83 68 Respiratory Rate Blood Pressure 122/80 H BP Systolic 122 BP Diastolic 80 Pulse Ox 10/27/23 10:51 10/27/23 10:51 10/27/23 10:51 Temperature 98.8 F Temperature Source Pulse Rate Respiratory Rate 16 Blood Pressure BP Systolic BP Diastolic Pulse Ox 98 10/27/23 10:53 10/27/23 10:53 10/27/23 12:34 Temperature Temperature Source Temporal Pulse Rate 74 Respiratory Rate Blood Pressure 103/68 BP Systolic 103 BP Diastolic 68 Pulse Ox 10/27/23 12:34 10/27/23 12:34 10/27/23 12:34 Temperature Temperature Source Pulse Rate 70 Respiratory Rate 16 Blood Pressure 114/79 BP Systolic 114 BP Diastolic 79 Pulse Ox 10/27/23 12:34 10/27/23 12:34 10/27/23 12:34 Temperature 99.1 F Temperature Source Pulse Rate 77 Respiratory Rate Blood Pressure BP Systolic BP Diastolic Pulse Ox 100 Weight Weight: 83.098 kg Body Mass Index (BMI) 26.2 Physical Exam Narrative 3-4/90/-2 Const alert and oriented x3 General Appearance: cooperative HEENT normocephalic GI GI Narrative: Gravid, non tender to palpation. OB / External & Speculum: external exam normal Extremity normal to inspection Skin no rashes or lesions noted Neuro oriented x3 and CN's II-XII intact bilaterally Psych Appearance: grossly normal Labs Labs Labs: Blood Type Pending Antibody Screen Pending Hct 36.3 % (37-47) L Hgb 11.6 g/dL (12.0-15.0) L Obstetrics Ultrasound Syphilis Total Ab Non-reactive Assessment & Plan (1) AMA (advanced maternal age) multigravida 35+: (2) SROM (spontaneous rupture of membranes): (3) 39 weeks gestation of : PLAN: Plan Admit to L&D [place] FHR/TOCO Epidural if requested for pain Monitor VS Anticipate pitocin augmentation GBS negative
[2023-10-27] MEDS: fentaNYL-bupivacaine (epidural) 100 ML BAG EPIDURAL (13:35)
--- NOTE | 2023-10-27 16:04 | PCM.PN.BLA ---
Progress Note pt seen at bedside, resting comfortably with epidural in place. VE: 9cm/90/+1. Anticipate . FHR Cat1 reactive at this time.
[2023-10-27] MEDS: Acetaminophen 500 MG Tablet PO (17:42)
--- NOTE | 2023-10-27 18:25 | EX.PCM.OBRPT ---
Vaginal Delivery Maternal Presentation Maternal Presentation: Active Labor Operative Information Date of Procedure: 10/27/23 Pre-Operative Diagnosis: AMA, 39 weeks, SROM Post-Operative Diagnosis: same, live female infant Surgery / Procedure Performed: Spontaneous Vaginal Delivery Type of Anesthesia: Epidural Estimated Blood Loss: 200 Time of Delivery: 18:06 Findings Description of Procedure: Patient progressed to fully dilated. Good maternal pushing efforts delivered the head followed by the anterior shoulder without complication. Delivered the rest the 's body without complication. The was placed on the mother's chest for immediate skin to skin. The was vigorous at time of delivery. Delayed cord clamping was performed. Cord was then clamped. Placenta was then delivered intact without complication. Pitocin was started. Second-degree vaginal laceration was appreciated. This was repaired using 2-0 Vicryl and 3-0 Rapide suture in the usual fashion. Excellent hemostasis was appreciated. Sponge and needle count were correct. Presentation: Vertex Amniotic Membrane Rupture Type: Spontaneous Amniotic Fluid Description: Clear Placental Delivery Description: Spontaneous Placenta Disposition: [facility] Specimen(s) Removed: Placenta Cord Vessel Description: 3 Vessels Cord Entanglement: None A Gender: Female (1 minute): 9 (5 minute): 9 Delayed Cord Clamping: Yes Post Vaginal Delivery Medications Given After Delivery: IV Pitocin Episiotomy Description: None Laceration: Vaginal Extension/lac and 2nd degree Complication Complications: None
[2023-10-27] MEDS: Oxytocin 15 Units/NS 250ml 15 UNITS/250 ML IV.SOLN 83 UNITS IV (18:55)
[2023-10-28] VITALS (9 sets, daily range): BP systolic 100–120; BP diastolic 59–75; PULSE 73–90; RESP 16; TEMP 36.8–37.3; O2SAT 97
--- NOTE | 2023-10-28 02:09 | DCINST_ITS ---
Discharge Instructions Diet Discharge Diet: No restrictions Activity May resume sexual activity in: 6-8 weeks Dressing / Incision Call your doctor if you observe: Fever of 101 or Higher, Inability to urinate, Using more than 1 pad per hour and Uncontrolled pain Follow Up Care Please Follow Up With: Zara Longoria MD When: 1-2 weeks post and again at 6 weeks post . [phone] Test Results: Test results from this visit will be discussed in further detail at your follow- up appointment, if applicable. Discharge Plan Admission Admit Date/Time: 10/27/23 09:20 Attending Provider: Zara Longoria Primary Care Provider: Care PhysicianCourtney Primary Discharge Orders/Prescriptions Prescriptions: New acetaminophen 500 mg Tablet 1,000 mg PO Q6H PRN PRN (Reason: Pain 1-10 Or Fever) Qty: 0 0RF ibuprofen 600 mg Tablet 600 mg PO Q6H PRN PRN (Reason: Pain Score 1-10) Qty: 0 0RF Continued OB Complete With Dha 30 mg iron-10 mg iron-1 mg capsule PO Discontinued ferrous sulfate [iron] 325 mg (65 mg iron) tablet 325 mg PO DAILY Referrals / Follow Up: Care Physician,[place] Primary [Primary Care Provider] - Disposition Disposition (needs filled in before D/C Order can be placed): Home, Self Care
--- NOTE | 2023-10-28 03:51 | PN_ITS ---
Subjective Subjective patient seen at bedside, doing well. Patient reports good pain control. lochia mild. Objective Data Objective Data Vital Signs: Vital Signs Temp Pulse Resp BP Pulse Ox O2 Del Method 98.9 F 90 16 106/59 L 97 Room Air 10/28/23 03:26 10/28/23 03:26 10/28/23 03:26 10/28/23 03:26 10/28/23 03:26 10/28/23 03:26 Oxygen Delivery Method Room Air Weight: 83.098 kg Body Mass Index (BMI) 26.2 Intake & Output: Intake and Output for Last 24 Hours 10/26/23 10/27/23 10/28/23 23:59 23:59 23:59 Intake Total 2500.00 / 2500.00 Output Total 900 / 900 Balance 1600.00 / 1600.00 Lab / Micro Data 10/27/23 10:10 Labs: Laboratory Results - last 24 hr 10/27/23 10:10: WBC 9.3, RBC 4.46, Hgb 11.6 L, Hct 36.3 L, MCV 81.4, MCH 26.0 L, MCHC 32.0, RDW Std Deviation 44.7 H, RDW Coeff of Fuad 15.2 H, Plt Count 251, MPV 11.8, Immature Gran % (Auto) 0.500, Neut % (Auto) 74.0 H, Lymph % (Auto) 13.2 L, [place] % (Auto) 11.8 H, Eos % (Auto) 0.3, Baso % (Auto) 0.2, Absolute Neuts (auto) 6.8, Absolute Lymphs (auto) 1.22, Nucleated RBC % 0, Syphilis Total Ab Non- reactive, Blood Type A POSITIVE, Antibody Screen NEGATIVE Physical Exam Const alert and oriented x3 General Appearance: cooperative HEENT normocephalic Neck General: normal visual inspection GI soft to palpation and non-distended GI Narrative: Fundus firm Extremity normal to inspection and no calf tenderness Skin no rashes or lesions noted Neuro oriented x3 and CN's II-XII intact bilaterally Psych mental status grossly normal Assessment & Plan Assessment/Plan (1) Vaginal delivery: PLAN: Plan PPD#1 , Doing well Routine care pain mgmt ambulation dc home
--- NOTE | 2023-10-28 09:17 | NURSING ---
pt with productive cough. Lungs clear B/L. questioned pt about her cough and states that she has a cold.
[2023-10-28] MEDS: Acetaminophen 500 MG Tablet 1000 MG PO (12:41)
== END 2023-10-28 19:35 | disposition home or self-care (01) | DRG 807 ==
PROVIDERS: Admitting Provider Obstetrics & Gynecology; Visit Provider Obstetrics & Gynecology
DX: O70.1 Second degree perineal laceration during delivery (principal); Z37.0 Single live birth; Z3A.39 39 weeks gestation of pregnancy
CPT/HCPCS: 59025; 59050; 85025; 86780; 86850; 86900; 86901; 99221; J7120; G0378

== ENCOUNTER 2024-07-22 08:15 | Emergency (ER) | payer OTHER, SELFPAY ==
[2024-07-22 08:16] VITALS: BP 105/81; PULSE 77; RESP 16; TEMP 36.7; O2SAT 100; BMI 22.1
--- NOTE | 2024-07-22 08:30 | CT_ITS ---
STUDY: CT ABDOMEN AND PELVIS WITH CONTRAST REASON FOR EXAM: Female, 39 years old. LLQ pain RADIATION DOSAGE (If Supplied By Facility): CTDIvol = ( 14.18 ) mGy, DLP = ( 635.61 ) mGycm TECHNIQUE: Transaxial images were obtained from the dome of the diaphragm to the symphysis pubis without oral contrast. IV 100mL Isovue-300 was administered. Sagittal and coronal images were reconstructed. Individualized dose optimization techniques were used for this CT. COMPARISON: None. FINDINGS: The visualized lung bases are unremarkable. The visualized portions of the heart are within normal limits. Normal liver. Normal gallbladder and extrahepatic biliary system. Normal spleen. Normal pancreas. Normal bilateral adrenal glands. Normal right kidney. Normal left kidney. Normal visualized stomach. Normal small intestine. Normal colon. There is a calcified appendicolith. Normal abdominal aorta. Normal inferior vena cava. Normal retroperitoneum. Normal urinary bladder. Normal abdominal wall. 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 CT/Abdomen/Pelvis W IV Cont ONLY IMPRESSION: No acute abnormality of the abdomen and pelvis. Electronically Signed: Hardeep Glaser MD at 9:33 EST ,
--- NOTE | 2024-07-22 08:31 | ED.VIS.GI ---
HPI HPI - GI History of Present Illness Chief Complaint: Abd Pain Informant: patient Narrative Narrative: 39-year-old female presents with left mid abdominal pain that started last night gradually. Noticed it is worse when she is lifting her daughter not sure if she strained something but she has been nauseated with it, it hurts when she is not lifting, and sometimes it radiates into the left flank/back, and other times to the right upper quadrant area. No vomiting. No recent alcohol. Normal bowel movements, pain does not get better afterwards, she denies any blood in her stool or melena. She denies any issues urinating. No history of any abdominal surgeries. She states she thinks when she was an older teenager she had some kidney stones. [facility] Medical History Kidney stone Pyelonephritis Home Medications ?Medication ?Instructions ?Recorded ?Last Taken ?Type ferrous sulfate 325 mg (65 mg 325 mg PO DAILY 10/26/23 Unknown History iron) tablet (iron) [id number] 1 mg 1 tab PO DAILY 10/26/23 Unknown History tablet vitamin#30 30 mg iron-10 cap PO 10/27/23 10/26/23 History mg iron-folic acid 1 mg-omg3 capsule (OB Complete With Dha) acetaminophen 500 mg tablet 1,000 mg (2 x 500 mg) PO Q6H PRN 10/28/23 Unknown Rx PRN Pain 1-10 Or Fever #0 tabs ibuprofen 600 mg tablet 600 mg PO Q6H PRN PRN Pain Score 10/28/23 Unknown Rx 1-10 #0 tabs Allergy/AdvReac Type Severity Reaction Status Date / Time No Known Allergies Allergy Verified 07/22/24 08:16 Family History (System 11/21/23 @ 14:11 by Angie Hahn) Grandfather Diabetes Grandmother Diabetes Hypertension Social History household members: spouse Smoking Status: Never smoker substance use type: does not use ROS ROS ED Constitutional Constitutional ED: Denies chills or fever(s) Eyes Eyes: Denies change in vision or diplopia ENT ENT ED: Denies rhinorrhea or sore throat Cardiovascular Cardiovascular: Denies chest pain or palpitations Respiratory/Chest Respiratory/Chest: Denies cough or dyspnea Gastrointestinal Gastrointestinal: Reports abdominal pain and nausea; Denies diarrhea or vomiting Genitourinary Genitourinary ED: Denies dysuria, hematuria or urinary frequency Musculoskeletal Musculoskeletal: Reports back pain; Denies neck pain Integumentary Denies abscess or rash Neurologic Neurologic: Denies headache(s), paresthesias or weakness Psychiatric Psychiatric: Denies anxiety or suicidal thoughts EXAM Physical Exam Const Vital Signs: 07/22/24 08:16 07/22/24 10:15 Temperature 98.0 F 98.4 F Temperature Source Oral Oral Pulse Rate 77 76 Respiratory Rate 16 16 Blood Pressure 105/81 H 108/64 Blood Pressure Mean 89 78 Pulse Ox 100 98 Oxygen Delivery Method Room Air Room Air Positive well nourished and well developed General Appearance ED: well developed and NAD HEENT Reports moist mucous membranes normocephalic and atraumatic Eyes PERRL and EOMs intact bilaterally Neck full ROM and supple Resp normal respiratory effort and clear to auscultation bilaterally Cardio regular rate, regular rhythm and no murmurs GI non-distended GI Narrative: Tender in the left lower quadrant without guarding or rebound, also tender in the right lower quadrant around McBurney's point. No other areas of abdominal tenderness or CVA tenderness. Negative Rovsing negative obturator negative psoas signs. Auscultation: normoactive bowel sounds Palpation: soft Back/Spine no CVA tenderness General Back: other FROM Extremity normal to inspection General Extremety ED: Negative for edema, pulses abnormal or tenderness General Extremity: Negative for edema or pulses abnormal Neuro oriented x3, CN's II-XII intact bilaterally and no sensory deficits noted Sensorium / Orientation: awake and alert Motor Exam: strength 5/5 throughout Skin no rashes or lesions noted and no wounds MDM MDM MDM Narrative Medical decision making narrative: Differential includes kidney stone, diverticulitis, appendicitis, some other type of colitis or intestinal etiology of her pain. I think a CT is warranted. She is never had a colonoscopy to know if she has had diverticulosis or not. I reviewed her labs, as well as a CT of her abdomen/pelvis, I agree with the result. It is negative, but a calcified appendicolith is seen. I reexamined her, the majority of her tenderness is at McBurney's point at this time. I discussed with surgery Dr. Medrano. He came and saw the patient and discussed with her. She is feeling better. In the end they decided to go home and watch this, treat for some possible constipation, and return if worse. According to the surgeon if she presents back within the next 2 to 3 days, he requests that a new CT not be performed, rather to obtain labs and consult him. Patient is comfortable with this plan. We did give her a dose of empiric antibiotics here, but seen as there is no acute appendicitis on the CT, surgery advises no outpatient antibiotics for now. She does understand that early appendicitis is possible, and instructions to return were given by me and surgery. Lab Data Attestation: I reviewed the patient's lab results. Labs: Laboratory Results - last 24 hr 07/22/24 07/22/24 08:40 08:50 WBC 10.4 RBC 4.42 Hgb 13.6 Hct 40.2 MCV 91.0 MCH 30.8 MCHC 33.8 RDW Std Deviation 41.9 RDW Coeff of Fuad 12.7 Plt Count 250 MPV 10.0 Immature Gran % (Auto) 0.300 Neut % (Auto) 72.1 H Lymph % (Auto) 16.9 L [place] % (Auto) 9.5 Eos % (Auto) 0.9 Baso % (Auto) 0.3 Absolute Neuts (auto) 7.5 Absolute Lymphs (auto) 1.75 Nucleated RBC % 0 Sodium 137 Potassium 3.9 Chloride 106 Carbon Dioxide 28.0 Anion Gap 3 L BUN 8 Creatinine 0.51 L Estim Creat Clear Calc 161.74 Est GFR (MDRD) Af Amer 173 Est GFR (MDRD) Non-Af 143 BUN/Creatinine Ratio 15.7 Glucose 101 Calcium 8.6 Total Bilirubin 0.60 AST 13 L ALT 18 Alkaline Phosphatase 51 Total Protein 6.8 Albumin 3.6 Globulin 3.2 Albumin/Globulin Ratio 1.1 Urine Color Yellow Urine Clarity Sl. Cloudy Urine pH 8.0 Ur Specific [place] 1.015 Urine Protein 15 H Urine Glucose (UA) Normal Urine Ketones Negative Urine Occult Blood Negative Urine Nitrite Negative Urine Bilirubin Negative Urine Urobilinogen Normal Ur Leukocyte Esterase Negative Urine RBC 0-5 SEEN Urine WBC 0 SEEN Ur Squamous Epith Cells 0-5 SEEN Amorphous Sediment 1+ Urine Bacteria RARE Urine Mucus 0 SEEN Urine Test Negative Radiography Diagnostic Testing: Clinical Impression(s) from Imaging Studies Abdomen/Pelvis CT 07/22/24 08:30 IMPRESSION: No acute abnormality of the abdomen and pelvis. Electronically Signed: Hardeep Glaser MD at 9:33 EST , Management Discussion w/another healthcare provider: Granulator (surgery Dr. Medrano) Discharge Plan Triage Chief Complaint: Abd Pain ED Provider: Alex Moran Dx/Rx/DC Orders Clinical Impression: Appendicolith, Lower abdominal pain Instructions: What Is Appendicitis? Prescriptions: No Action [id number] 1 mg tablet 1 tab PO DAILY ferrous sulfate [iron] 325 mg (65 mg iron) tablet 325 mg PO DAILY OB Complete With Dha 30 mg iron-10 mg iron-1 mg capsule PO acetaminophen 500 mg Tablet 1,000 mg PO Q6H PRN PRN (Reason: Pain 1-10 Or Fever) Qty: 0 0RF ibuprofen 600 mg Tablet 600 mg PO Q6H PRN PRN (Reason: Pain Score 1-10) Qty: 0 0RF Primary Care Provider: Care Physician,No Primary Referrals: Chetan Medrano MD [Med Staff - Active Staff] - 3-5 Days if not improving (can call if needed, is on-call) Activity Restrictions/Additional Instructions: may try half a bottle of miralax along with plenty of water to see if having good bowel movement helps. Print Language: Vietnamese Disposition Disposition: Home, Self Care
[2024-07-22 08:50] LABS: Color, Urine Yellow (Yellow); Glucose, Dipstick Normal (Normal); Ketone-Dipstick Negative (Negative); Leukocyte Esterase-Dipstick Negative /ul (Negative); Mucous, Urine 0 SEEN /hpf (<or=2+); Nitrite-Dipstick Negative (Negative); Occult Blood-Urine Negative /ul (Negative); Protein-Dipstick 15 mg/dl (Negative); Specific Gravity, Urine 1.015 (1.002-1.030); Urine Bilirubin Dipstick Negative (Negative); Urine Clarity Sl. Cloudy (Clear); Urine Urobilinogen Normal (Normal); White Blood Cells 0 SEEN /hpf (0-5)
[2024-07-22] MEDS: Ondansetron 4 MG/2 ML Vial IV (08:54)
[2024-07-22] MEDS: Ketorolac 30 MG/ML Syringe IV (08:54)
[2024-07-22 08:55] LABS: Absolute Lymphocyte Count 1.75 X10^3/uL (0.83-4.51); Absolute Neutrophil Count 7.5 X10^3/uL (2.0-7.7); Basophil# 0.03 X10^3/uL; Basophil% 0.3 % (0-1); Eosinophil# 0.09 X10^3/uL; Eosinophils% 0.9 % (0-5); Hematocrit 40.2 % (37-47); Hemoglobin 13.6 g/dL (12.0-15.0); Lymphocyte # 1.75 X10^3/ul (0.83-4.51); Lymphocyte % 16.9 % (19-41); Mean Corp Hgb Conc 33.8 g/dL (32-36); Mean Corpuscular Hgb 30.8 pg (27.0-32.0); Monocyte# 0.99 X10^3/uL; Monocyte% 9.5 % (0-10); NRBC Flagged by Analyzer 0 % (0-5); Neutrophil # 7.48 X10^3/uL (2.7-7.7); Neutrophil % 72.1 % (47-70); Platelet Count 250 K/mm3 (150-450); RBC Distribution Width CV 12.7 % (11.6-14.6); RBC Distribution Width SD 41.9 fl (35.1-43.9); Red Blood Count 4.42 M/mm3 (4.2-5.4); White Blood Count 10.4 K/mm3 (4.4-11.0)
[2024-07-22 08:55] LABS: Internal QC Validated? YES +Cl - CLEAR BKGD; Pregnancy, Urine Negative Negative
[2024-07-22 08:56] LABS: Amorphous Sediment 1+; Bacteria RARE /hpf (None Seen); Red Blood Cells-Urine 0-5 SEEN /hpf (0-5); Squamous Epithelial Cells - UA 0-5 SEEN /hpf (5-10)
[2024-07-22 09:12] LABS: ALB/GLOB Ratio 1.1 RATIO (0.9-2.4); AST(SGOT) 13 U/L (15-37); Alanine Aminotransfer ALT/SGPT 18 U/L (13-56); Albumin, Serum 3.6 g/dL (3.2-5.0); Alkaline Phosphatase 51 U/L (45-117); Anion Gap 3 (5-15); BUN 8 mg/dL (7-18); BUN/Creat Ratio 15.7 RATIO (10-20); Calcium,Total 8.6 mg/dL (8.5-10.1); Chloride 106 mmol/L (98-107); Creatinine, Serum 0.51 mg/dL (0.55-1.02); EST Glomerular Filtration Rate 143 mL/min (>60); Est Glom Filt Rate - Afr Amer 173 mL/min (>60); Estimated Creatinine Clearance 161.74 ml/min; Globulin 3.2 g/dL (2.2-4.2); Glucose 101 mg/dL (74-106); Potassium 3.9 mmol/L (3.5-5.1); Protein, Total 6.8 g/dL (6.4-8.2); Sodium Level 137 mmol/L (136-145)
[2024-07-22 10:15] VITALS: BP 108/64; PULSE 76; RESP 16; TEMP 36.9; O2SAT 98
[2024-07-22] MEDS: Piperacil/Tazobactam 3.375 GM in 0.9% Normal Saline (50mL MB+) 50 ML IV (10:33)
[2024-07-22] MEDS: Morphine 4 MG/ML Syringe IV (10:37)
--- NOTE | 2024-07-22 10:45 | CM.ED ---
Social Work Reason for visit, no PCP. SW entered room, introduced self and role with [facility]. Patient verified that she does not currently have a PCP. [facility] provider list given to patient. No further needs identified at this time. Eve Olson, BRANCH ACCOUNT MANAGER, TRAFFIC ENGINEERING TECHNICIAN
[2024-07-22 11:53] VITALS: BP 124/64; PULSE 71; RESP 16; TEMP 37.2; O2SAT 99
--- NOTE | 2024-07-22 13:35 | EX.PCM.CON.S ---
Assessment & Plan Assessment/Plan (1) Lower abdominal pain: (2) Appendicolith: PLAN: Plan The patient is a 39-year-old female who presented with lower abdominal discomfort for about 12 to 24 hours.. ER workup was negative for leukocytosis. CT scan showed a fecalith but no associated inflammatory changes to suggest obvious appendicitis. Given complaints of lower abdominal pain, surgical consult was obtained. I saw the patient in the emergency room. By the time I saw the patient, she states that she was feeling much better and had very little if any pain. We did discuss treatment options of doing a diagnostic laparoscopy with appendectomy as I explained that we have a pretty low threshold to intervene in cases of possible or suspected appendicitis. Patient states that she was wondering if would be possible to go home and return if her symptoms worsen. I stated that that is certainly another option given her clinical improvement. I stated that we could certainly could not 100% rule out the possibility of appendicitis. For this reason I have recommended that she return to the emergency room if her symptoms recur or worsen. She assures me that she lives close by and will certainly return to the emergency room if her symptoms persist or worsen. If she does return, I would recommend just getting basic labs and contacting me. This was discussed with the ER physician taking care of the patient. We are all in agreement with letting her go home provided that she return with further symptoms. Given the amount of stool noted on CT scan, I also recommend that she consider taking some stool softeners or MiraLAX etc. she is understanding of this and well proceed accordingly HPI Consult Data Date of Consult: 07/22/24 HPI Narrative Reason for Consultation: Abdominal pain HPI Narrative: NYDIA CLAROS, is a 39 F who presented to the emergency department at [facility] this morning with initially which she described as left lower quadrant abdominal pain since the previous night. Patient was seen today by the ER staff. She underwent laboratory testing and this showed no significant leukocytosis. On their examination, she had diffuse lower abdominal pain present on both the left and the right. They thought that the pain might be more so on the right compared to left. CT scan of the abdomen pelvis was performed.. No acute findings were noted per radiology aside from a small calcified fecalith. There was no inflammation around the appendix to suggest obvious appendicitis. On my review of the CT scan, it was noted that she had fecal material to at least a moderate extent all throughout her colon especially on the right colon cecal region. I was contacted by the emergency room physician to evaluate the patient for possible appendicitis. Albeit she was medicated for pain prior to my arrival, she stated that she was feeling much better. She stated that her pain was almost nonexistent at that point. When questioned about bowel movements and constipation, she later admitted that she has been constipated recently and states that she really has not been eating healthy and has not been taking sufficient fluid intake. [facility] Medical History Kidney stone Pyelonephritis Home Medications ?Medication ?Instructions ?Recorded ?Last Taken ?Type ferrous sulfate 325 mg (65 mg 325 mg PO DAILY 10/26/23 Unknown History iron) tablet (iron) [id number]-Mj-FA 1 mg 1 tab PO DAILY 10/26/23 Unknown History tablet vitamin#30 30 mg iron-10 cap PO 10/27/23 10/26/23 History mg iron-folic acid 1 mg-omg3 capsule (OB Complete With Dha) acetaminophen 500 mg tablet 1,000 mg (2 x 500 mg) PO Q6H PRN 10/28/23 Unknown Rx PRN Pain 1-10 Or Fever #0 tabs ibuprofen 600 mg tablet 600 mg PO Q6H PRN PRN Pain Score 10/28/23 Unknown Rx 1-10 #0 tabs Allergy/AdvReac Type Severity Reaction Status Date / Time No Known Allergies Allergy Verified 07/22/24 08:16 Family History Grandfather Diabetes Grandmother Diabetes Hypertension Social History household members: spouse Smoking Status: Never smoker substance use type: does not use Physical Exam Narrative She is alert and oriented x 3. No acute distress. Abdomen overall is very benign. No significant areas of tenderness to palpation even in the right lower quadrant. She may have some mild discomfort with deep palpation of the lower abdomen but overall this did not seem clearly suggestive of appendicitis. Lab / Micro Data 07/22/24 08:50 07/22/24 08:50 Labs: Laboratory Results - last 24 hr 07/22/24 08:40: Urine Color Yellow, Urine Clarity Sl. Cloudy, Urine pH 8.0, Ur Specific [place] 1.015, Urine Protein 15 H, Urine Glucose (UA) Normal, Urine Ketones Negative, Urine Occult Blood Negative, Urine Nitrite Negative, Urine Bilirubin Negative, Urine Urobilinogen Normal, Ur Leukocyte Esterase Negative, Urine RBC 0-5 SEEN, Urine WBC 0 SEEN, Ur Squamous Epith Cells 0-5 SEEN, Amorphous Sediment 1+, Urine Bacteria RARE, Urine Mucus 0 SEEN, Urine Test Negative 07/22/24 08:50: WBC 10.4, RBC 4.42, Hgb 13.6, Hct 40.2, MCV 91.0, MCH 30.8, MCHC 33.8, RDW Std Deviation 41.9, RDW Coeff of Fuad 12.7, Plt Count 250, MPV 10.0, Immature Gran % (Auto) 0.300, Neut % (Auto) 72.1 H, Lymph % (Auto) 16.9 L, [place] % (Auto) 9.5, Eos % (Auto) 0.9, Baso % (Auto) 0.3, Absolute Neuts (auto) 7.5, Absolute Lymphs (auto) 1.75, Nucleated RBC % 0, Sodium 137, Potassium 3.9, Chloride 106, Carbon Dioxide 28.0, Anion Gap 3 L, BUN 8, Creatinine 0.51 L, Estim Creat Clear Calc 161.74, Est GFR (MDRD) Af Amer 173, Est GFR (MDRD) Non-Af 143, BUN/Creatinine Ratio 15.7, Glucose 101, Calcium 8.6, Total Bilirubin 0.60, AST 13 L, ALT 18, Alkaline Phosphatase 51, Total Protein 6.8, Albumin 3.6, Globulin 3.2, Albumin/Globulin Ratio 1.1 Imaging Radiology Impression Abdomen/Pelvis CT 07/22/24 08:30 IMPRESSION: No acute abnormality of the abdomen and pelvis. Electronically Signed: Hardeep Glaser MD at 9:33 EST , Charges/Coding Visit Charges Inpatient E&M: 71564 Init Hosp L3
== END 2024-07-22 11:58 | disposition home or self-care (01) ==
LOC: ED 08:35 → ACINP 11:49 → ED 11:51
PROVIDERS: Emergency Provider Emergency Medicine; Visit Provider Emergency Medicine
DX: K38.1 Appendicular concretions (principal); R10.30 Lower abdominal pain, unspecified; Z87.442 Personal history of urinary calculi
CPT/HCPCS: 74177; 80053; 81001; 81025; 85025; 96365; 96375; 99283; Q9967; A4216; J2405

== ENCOUNTER 2024-07-23 05:51 | Observation (INO) | payer OTHER, SELFPAY ==
[2024-07-23] VITALS (14 sets, daily range): BP systolic 81–118; BP diastolic 47–82; PULSE 58–80; RESP 14–16; TEMP 36.2–37.1; O2SAT 95–100; BMI 23.8; BMI 23.4
--- NOTE | 2024-07-23 06:14 | EDS_ITS ---
HPI History of Present Illness Chief Complaint: Abd Pain Informant: patient and spouse/S.O. Narrative Narrative: Patient is a 39-year-old female who was seen yesterday secondary to abdominal pain. At that time there was concern for acute appendicitis and the surgeon recommended admission for continued observation and exploratory surgery. The patient states she was scared and did not want to have the procedure performed so she asked to be discharged home. She states that as the day progressed her pain became more intense and more localized in the right lower quadrant. She states that in the evening she felt like she had a fever. Therefore with her wo rsening pain and symptoms she does now feel that surgery is the best option and is prepared to have it performed and with this presents for reevaluation [facility] Medical History Kidney stone Pyelonephritis Home Medications ?Medication ?Instructions ?Recorded ?Last Taken ?Type NK 07/23/24 Unknown History Allergy/AdvReac Type Severity Reaction Status Date / Time No Known Allergies Allergy Verified 07/23/24 05:52 Family History Grandfather Diabetes Grandmother Diabetes Hypertension Social History household members: spouse Smoking Status: Never smoker substance use type: does not use ROS ROS ED Constitutional Constitutional ED: Reports fever(s) and subjective; Denies chills ENT ENT ED: Denies sore throat Cardiovascular Cardiovascular: Denies chest pain Respiratory/Chest Respiratory/Chest: Denies cough or dyspnea Gastrointestinal Gastrointestinal: Reports abdominal pain and nausea; Denies constipation, diarrhea or vomiting Genitourinary Genitourinary ED: Denies dysuria or hematuria Musculoskeletal Musculoskeletal: Denies myalgias Integumentary Denies rash Neurologic Neurologic: Denies headache(s) Hematologic/Lymphatic Hematologic/Lymphatic: Denies easy bleeding or easy bruising EXAM Physical Exam Const Vital Signs: 07/23/24 05:52 Temperature 98.0 F Temperature Source Oral Pulse Rate 80 Respiratory Rate 16 Blood Pressure 113/71 Blood Pressure Mean 85 Pulse Ox 99 Oxygen Delivery Method Room Air Positive well nourished and well developed General Appearance ED: well developed; Negative for pallor HEENT Reports moist mucous membranes HEENT Narrative: No tongue or lip swelling no oral lesions no airway edema or compromise No secondary findings in the posterior pharynx to suggest infection Eyes PERRL and EOMs intact bilaterally General Eye ED: Negative for scleral icterus Neck supple Neck Narrative: No nuchal rigidity or meningeal signs Resp normal respiratory effort and clear to auscultation bilaterally Cardio regular rate and regular rhythm Rate: other Other Details: Heart is regular rate and rhythm without murmurs rubs or gallops Radial and carotid pulses are equal and symmetric GI non-distended and no masses GI Narrative: Abdomen is soft and nondistended with normal active bowel sounds. Patient has diffuse abdominal pain with palpation but this is greatest in the right lower quadrant with voluntary guarding and rebound tenderness. Patient also has a positive Rovsing sign as well as positive heel strike psoas and obturator signs. Auscultation: normoactive bowel sounds Palpation: soft Extremity normal to inspection Neuro oriented x3, CN's II-XII intact bilaterally and no sensory deficits noted Sensorium / Orientation: alert Motor Exam: strength 5/5 throughout Psych mental status grossly normal Skin no rashes or lesions noted and no wounds General Skin Exam: Negative for jaundice or pallor MDM MDM MDM Narrative Medical decision making narrative: Patient arrived to the ER with stable vitals. She was seen roughly 24 hours ago and had laboratory studies with CT scan as well as surgical consult. With patient having reported subjective fevers with worsening abdominal pain and her physical exam showing changes concerning for acute appendicitis I elected to treat once again with IV antibiotics IV fluids and pain medication. Repeat laboratory studies were ordered as well but as she had a CT scan just 24 hours ago and surgical evaluation I did not feel the need for repeat imaging. The case was discussed with the general surgeon Dr. Medrano who evaluated the patient yesterday. He states that repeating laboratory studies and providing pain relief is a good plan at this time but does recommend admission to his service so that he can perform the surgery that they discussed yesterday. This plan of care was discussed with the patient and she states she is agreeable to be admitted as well as undergo surgical process and therefore should be admitted to the floor for further care. History & Record Review Discussion w/independent historian: Patient and Significant other Management Discussion w/another healthcare provider: Clinical Assoc Discharge Plan Dx/Rx/DC Orders Clinical Impression: Appendicolith, Acute appendicitis Disposition Disposition: Acute Care Hospital [facility]
[2024-07-23] MEDS: Ondansetron 4 MG/2 ML Vial IV ×2 (06:24→15:16)
[2024-07-23] MEDS: 0.9% Normal Saline (1000mL) 1,000 ML 999 ML IV (06:24)
[2024-07-23] MEDS: Morphine 4 MG/ML Syringe IV (06:24)
[2024-07-23] MEDS: Piperacil/Tazobactam 3.375 GM in 0.9% Normal Saline (50mL MB+) 50 ML IV ×3 (06:24→22:38)
[2024-07-23 06:33] LABS: Absolute Lymphocyte Count 2.07 X10^3/uL (0.83-4.51); Basophil# 0.05 X10^3/uL; Basophil% 0.5 % (0-1); Eosinophil# 0.15 X10^3/uL; Eosinophils% 1.6 % (0-5); Hematocrit 40.9 % (37-47); Hemoglobin 13.7 g/dL (12.0-15.0); Lymphocyte # 2.07 X10^3/ul (0.83-4.51); Lymphocyte % 21.6 % (19-41); Mean Corp Hgb Conc 33.5 g/dL (32-36); Mean Corpuscular Hgb 30.6 pg (27.0-32.0); Mean Corpuscular Volume 91.5 fL (81-99); Mean Platelet Vol. 10.3 fl (6.2-12.0); Monocyte# 1.24 X10^3/uL; Monocyte% 12.9 % (0-10); NRBC Flagged by Analyzer 0 % (0-5); Neutrophil # 6.04 X10^3/uL (2.7-7.7); Neutrophil % 63.1 % (47-70); Platelet Count 242 K/mm3 (150-450); RBC Distribution Width CV 12.9 % (11.6-14.6); RBC Distribution Width SD 42.9 fl (35.1-43.9); Red Blood Count 4.47 M/mm3 (4.2-5.4); White Blood Count 9.6 K/mm3 (4.4-11.0)
[2024-07-23 06:47] LABS: Anion Gap 3 (5-15); BUN 8 mg/dL (7-18); BUN/Creat Ratio 12.5 RATIO (10-20); Calcium,Total 8.7 mg/dL (8.5-10.1); Chloride 104 mmol/L (98-107); Creatinine, Serum 0.64 mg/dL (0.55-1.02); EST Glomerular Filtration Rate 110 mL/min (>60); Est Glom Filt Rate - Afr Amer 133 mL/min (>60); Estimated Creatinine Clearance 128.88 ml/min; Glucose 104 mg/dL (74-106); Potassium 3.6 mmol/L (3.5-5.1); Sodium Level 137 mmol/L (136-145)
[2024-07-23 06:54] LABS: Lactic Acid 0.7 mmol/L (0.4-1.9)
--- NOTE | 2024-07-23 12:13 | PCM.PRE.AN2 ---
ASA Classification* ASA Classification ASA Classification: 2 and E Assessment & Plan Anesthesia* Anesthesia Assessment Anesthesia Assessment: Discussed sedation and/or anesthesia options, risks, benefits, and alternatives with patient/parents/legal guardian/POA. Questions invited. The patient/parents/legal guardian/POA seems to understand and agrees to proceed with anesthesia plan. Reviewed the physical assessment, medical history, allergy history and patient home medications list prior to surgery/procedure/anesthetic and documented any changes. Performed airway and anesthesia risk assessments. Anesthesia Type Anesthesia Type: General Anesthesia Focused Assessment* Temperature: 97.6 F Pulse Rate: 76 Blood Pressure: 118/72 Respiratory Rate: 16 Pulse Ox: 96 Airway Assessment Mouth opens: >3 cm Mallampati Score: I Focused Labs Anesthesia Preop lab: CBC WBC 9.6 K/mm3 (4.4-11.0) 07/23/24 06:15 RBC 4.47 M/mm3 (4.2-5.4) 07/23/24 06:15 Hgb 13.7 g/dL (12.0-15.0) 07/23/24 06:15 Hct 40.9 % (37-47) 07/23/24 06:15 Plt Count 242 K/mm3 (150-450) 07/23/24 06:15 CHEMISTRY Potassium 3.6 mmol/L (3.5-5.1) 07/23/24 06:15 Sodium 137 mmol/L (136-145) 07/23/24 06:15 BUN 8 mg/dL (7-18) 07/23/24 06:15 Creatinine 0.64 mg/dL (0.55-1.02) 07/23/24 06:15 Glucose 104 mg/dL (74-106) 07/23/24 06:15 COAG HCG, Quant 7657 mIU/mL (1-3) H 03/05/23 20:25 Urine Test Negative Negative 07/22/24 08:40 Pre-Assessment Diagnosis/Proposed Procedure Planned Operative Procedure(s): lap appy Anesthesia History 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 When Was Last Pacemaker Check QUESTION #4 FULL TEXT: You/Your Family Experience fever (hyperthermia) with Anesthesia Last Oral Intake Last Oral intake: Last Oral Intake NPO since 05:00 07/23/24 11:47 Meds taken in AM with sips of No 07/23/24 11:47 water? Meds patient instructed to take am of surgery PONV PONV - heavy equipment diesel mechanic: PONV - heavy equipment diesel mechanic Female HX of Motion Sickness HX of N/V After Surgery Non-Smoker Duration of Surgery greater than 60 minutes Number of Risk Factors PONV Score Height & Weight Height & Weight: Anesthesia: Height & Weight Height 5 ft 10 in 07/23/24 11:47 Weight: 74.077 kg 07/23/24 11:47 Body Mass Index (BMI) 23.4 07/23/24 11:47 Respiratory Assessment Respiratory Assessment - heavy equipment diesel mechanic: Respiratory Tract Infection Hx - heavy equipment diesel mechanic Hx Respiratory Tract Infection No 07/23/24 11:47 STOP Sleep Apnea STOP Sleep Apnea - heavy equipment diesel mechanic: STOP Sleep Apnea - heavy equipment diesel mechanic Hx Hypertension No 07/23/24 08:19 Hx Sleep Apnea No 07/23/24 08:19 CPAP BIPAP Do you snore loudly (louder No 07/23/24 08:19 than talking or can be heard Do you often feel tired/ No 07/23/24 08:19 fatigued/ sleepy during daytime? Has anyone observed you stop No 07/23/24 08:19 breathing during sleep? STOP Results Negative 07/23/24 08:19 QUESTION #5 FULL TEXT : Do you snore loudly (louder than talking or can be heard through closed doors)? 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 Specify any problems Hx of Preganancy in last 3 No 07/23/24 08:19 Months Nurse Filling Out Transfusion [email or web address] 07/23/24 08:19 & Questions: Date: 07/23/24 07/23/24 08:19 Time: 08:07/23/24 08:19 Patient unable to answer at this time (ie. confused, unrespo /Reproduction History /Reproductive History - heavy equipment diesel mechanic: /Reproductive Hx- heavy equipment diesel mechanic Hx Now No 07/23/24 11:47 Gestational Age (in weeks): EDC: Hx Hx Para Hx Section SAB Yes 07/23/24 11:47 Active Medications Active Medications: Current Medications Generic Name Dose Route Start Last Admin Trade Name Freq PRN Reason Stop Dose Admin Acetaminophen 1,000 mg 07/23/24 14:00 Acetaminophen 500 Mg Tablet PO Q8 ANDREE Sodium Chloride 100 mls @ 15 mls/hr 07/23/24 07:02 IV .Q6H40M PRN Saline Flush Piperacillin Sod/Tazobactam 50 mls @ 12.5 mls/hr 07/23/24 14:00 Sod 3.375 gm/ Sodium Chloride IV Q8 ANDREE Morphine Sulfate 2 - 4 mg 07/23/24 08:14 Morphine 2 Mg/Ml Syringe IV Q3H PRN PRN Pain Score 6-10 Ondansetron HCl 4 mg 07/23/24 08:14 Ondansetron 4 Mg/2 Ml Vial IV Q8H PRN PRN NAUSEA/VOMITING Oxycodone HCl 5 mg 07/23/24 08:14 Oxycodone 5 Mg Tablet PO Q4H PRN PRN Pain Score 4-10 Sodium Chloride 10 - 40 ml 07/23/24 07:02 0.9% Saline Lock 10 Ml Syringe IV UD PRN SALINE FLUSH PFSH Medical History Kidney stone Pyelonephritis Home Medications ?Medication ?Instructions ?Recorded ?Last Taken ?Type NK 07/23/24 Unknown History Allergy/AdvReac Type Severity Reaction Status Date / Time No Known Allergies Allergy Verified 07/23/24 05:52 Family History Grandfather Diabetes Grandmother Diabetes Hypertension Social History household members: spouse Smoking Status: Never smoker substance use type: does not use Review of Systems (Anesthesia) ROS Narrative System reviewed and no additional complaints, except as documented.
--- NOTE | 2024-07-23 12:20 | NURSING ---
Dr. Medrano seen patient, this nurse transported pt to OR, handed off to [facility] staff.
--- NOTE | 2024-07-23 12:20 | HP.PCM_ITS ---
HPI - General General Date of Admission: 07/23/24 Date of Service: 07/23/24 Chief Complaint: Right lower quadrant abdominal pain HPI Narrative NYDIA CLAROS, is a 39 F who was seen in the emergency room yesterday with lower abdominal pain. CT scan was essentially unremarkable except for small fecalith noted. Her white count was normal. There were no inflammatory changes around the appendix at that point to suggest appendicitis. I was asked to see the patient. By the time I saw her she stated that her symptoms had improved tremendously and she wished to go home. We instructed her to return to the ER if her symptoms fail to improve or certainly worsen. She states that she went home yesterday and had increasing pain in the right lower quadrant and also developed some mild fevers. She presented to the emergency room. Blood work was repeated. I was contacted and recommended that we admit the patient and plan for appendectomy. [facility] Medical History Kidney stone Pyelonephritis Home Medications ?Medication ?Instructions ?Recorded ?Last Taken ?Type NK 07/23/24 Unknown History Allergy/AdvReac Type Severity Reaction Status Date / Time No Known Allergies Allergy Verified 07/23/24 05:52 Family History Grandfather Diabetes Grandmother Diabetes Hypertension Social History household members: spouse Smoking Status: Never smoker substance use type: does not use Vital Signs Vital Signs Vital Signs: 07/23/24 05:52 07/23/24 06:26 07/23/24 08:17 Temperature 98.0 F 97.9 F 97.6 F L Temperature Source Oral Oral Pulse Rate 80 72 64 Pulse Strength Respiratory Rate 16 16 16 Respiratory Effort Respiratory Depth Respiratory Pattern Blood Pressure 113/71 102/72 101/66 Blood Pressure Mean 85 82 77 Blood Pressure Source Monitor Blood Pressure Position Semi-Fowlers Blood Pressure Location Left Arm Pulse Ox 99 100 100 Oxygen Delivery Method Room Air Room Air 07/23/24 08:32 07/23/24 08:39 07/23/24 11:47 Temperature 97.6 F L Temperature Source Oral Pulse Rate 76 Pulse Strength Normal (2+) Respiratory Rate 16 Respiratory Effort Normal Respiratory Depth Normal Respiratory Pattern Normal Blood Pressure 118/72 Blood Pressure Mean 87 Blood Pressure Source Monitor Blood Pressure Position Semi-Fowlers Blood Pressure Location Left Arm Pulse Ox 96 Oxygen Delivery Method Room Air Room Air 07/23/24 12:14 Temperature 97.6 F L Temperature Source Pulse Rate 76 Pulse Strength Respiratory Rate 16 Respiratory Effort Respiratory Depth Respiratory Pattern Blood Pressure 118/72 Blood Pressure Mean Blood Pressure Source Blood Pressure Position Blood Pressure Location Pulse Ox 96 Oxygen Delivery Method Weight Weight: 163 lb 5 oz Body Mass Index (BMI) 23.4 Physical Exam Narrative She is alert and oriented x 3. No acute distress. She is nontoxic-appearing. Abdomen is soft and nondistended. Mild tenderness to palpation in the right lower quadrant Results Lab / Micro Data 07/23/24 06:15 07/23/24 06:15 Labs: Laboratory Results - last 24 hr 07/23/24 06:15: WBC 9.6, RBC 4.47, Hgb 13.7, Hct 40.9, MCV 91.5, MCH 30.6, MCHC 33.5, RDW Std Deviation 42.9, RDW Coeff of [place]ad 12.9, Plt Count 242, MPV 10.3, Immature Gran % (Auto) 0.300, Neut % (Auto) 63.1, Lymph % (Auto) 21.6, [place] % (Auto) 12.9 H, Eos % (Auto) 1.6, Baso % (Auto) 0.5, Absolute Neuts (auto) 6.0, Absolute Lymphs (auto) 2.07, Nucleated RBC % 0, Sodium 137, Potassium 3.6, Chloride 104, Carbon Dioxide 30.0, Anion Gap 3 L, BUN 8, Creatinine 0.64, Estim Creat Clear Calc 128.88, Est GFR (MDRD) Af Amer 133, Est GFR (MDRD) Non-Af 110, BUN/Creatinine Ratio 12.5, Glucose 104, Lactic Acid 0.7, Calcium 8.7 Assessment & Plan Assessment/Plan (1) Acute appendicitis: PLAN: The patient is a 39-year-old female with right lower quadrant pain. I suspect acute appendicitis of a mild nature. As explained yesterday we have a very low threshold to proceed with diagnostic laparoscopy/appendectomy if were concerned about appendicitis. Since her right lower quadrant pain increased and fevers developed, I have recommended a laparoscopic appendectomy as treatment. We discussed the details of the planned procedure and she wishes to proceed. Surgery will begin momentarily. Charges/Coding Visit Charges Inpatient E&M: 88682 Init Hosp L3
--- NOTE | 2024-07-23 12:50 | APP_PTH ---
PATIENT: NYDIA CLAROS LOC: MS3 U#:[id number] AGE/SX: 39/F ROOM: MS314 RE07/23/[address]: Dr. Chetan Medrano MD : 1985 BED: 1 DIS: 07/24/2024 SPEC #: [id number] RECD: 07/24/24 11:02 STATUS: SINA DOMINGUEZJyotsna #: [id number] KENNETH: 07/23/24 12:[address]: Chetan Medrano DEPT: SURGICAL PATHOLOGY RECD BY: Yane Betancourt ENTERED: 07/24/24 12:55 SP TYPE: APPENDIX VICKY DR: Courtney Primary Care Phys DEWAYNE Borjas Tissues: Appendix, NOS Procedures: Surgery Specimen Level III HEADER OPERATION: Laparoscopic, appendectomy PRE-OP DIAGNOSIS: Acute appendicitis TISSUE SUBMITTED: Appendix MICROSCOPIC DIAGNOSIS Appendix, appendectomy: Acute appendicitis and periappendicitis. 07/25/2024 MICROSCOPIC DESCRIPTION Slides are reviewed. GROSS DESCRIPTION Received in fixative is one container labeled with the patient's name and designated appendix. The specimen consists of C shaped appendix measuring 6 cm in length and up to 1.0 cm in diameter. The attached periappendiceal adipose tissue measures up to 1.5 cm in width. The mucosa is congested and hemorrhagic. No obvious perforation is identified. The lumen is filled with fecal material. No fecalith is identified. Ironer sections are submitted in one cassette. / RAGHU:lester 07/24/24 TC: 2 CPT: [id number]
[2024-07-23] MEDS: Bupiv/Epi 0.25% 30 ML Vial (13:22)
--- NOTE | 2024-07-23 13:46 | PCM.POST.ANE ---
Anesthesia: Postop Eval I Current Vital Signs Temperature: 97.2 F Pulse Rate: 77 Blood Pressure: 116/79 Respiratory Rate: 16 Pulse Ox: 100 Assessment Airway patent: Yes Spontaneous unlabored respirations: Yes nausea: No Vomiting: No Anesthesia Complication: No Fluid Hydration Crystalloid volume administer (ml): 1,500 Total IV fluid infused: 1,500 Progress Note Anesthesia document: Postop Eval 1 completed: Yes
--- NOTE | 2024-07-23 13:48 | PCM.POSTANE2 ---
Anesthesia Postop Eval I Sum Postop Eval Completion status Anesthesia document: Postop Eval 1 completed: Yes Anesthesia Postop Eval I Summary Anesthesia Postop Eval I Summary: Anesthesia Postop Eval I: Assessment Summary Airway patent Yes 07/23/24 13:46 Spontaneous unlabored Yes 07/23/24 13:46 respirations Mental status nausea No 07/23/24 13:46 Vomiting No 07/23/24 13:46 Anesthesia Postop Eval I: Fluid Summary Crystalloid volume administer 1,500 07/23/24 13:46 (ml) Colloids volume administered ( ml) Blood Product volume administered (ml) Total IV fluid infused 1,500 07/23/24 13:46 Anesthesia Postop Eval I: Summary Notes Anesthesia Complication No 07/23/24 13:46 Anesthesia Complication Comment: Post-operative progress note Anesthesia: Postop Eval II Evaluation Mental status: Awake Pain Level: 0 nausea: No Vomiting: No
--- NOTE | 2024-07-23 14:13 | OP.PCM_ITS ---
Problems Associated Problem List Diagnoses (1) Acute appendicitis: Procedures Digestive 40xxx-49xxx: 06105 Laparoscopy appendectomy Operative Report (Standard) Operative Information Date of Procedure: 07/23/24 Pre-Operative Diagnosis: Acute appendicitis Post-Operative Diagnosis: Acute appendicitis Surgery/Procedure Performed: Laparoscopic appendectomy equine science instructor: No Type of Anesthesia: General and Local RN Documented Start/Stop Times: Operation Date: 07/23/24 12:50 Case Time Anesthesia Start 07/23/24 12:28 Into Room 07/23/24 12:28 Procedure Start 07/23/24 13:00 Procedure End 07/23/24 13:32 Anesthesia End 07/23/24 13:40 Out of Room 07/23/24 13:40 Into Recovery 07/23/24 13:45 Out of Recovery 07/23/24 14:07 Procedure Start Time: 13:00 Procedure Stop Time: 13:32 Select all DRAINS/GRAFTS/IMPLANTS that apply: None Estimated Blood Loss: 10 mL Specimen collected: Yes Description of specimen(s) removed: Appendix Description of surgery: The patient is a 39-year-old female who initially presented yesterday to the emergency room with diffuse lower abdominal pain. Initially her pain was more in the left side. She underwent a CT scan yesterday and that showed really no acute findings. It was noted that she had a calcified fecalith in the appendix but no inflammatory changes to the appendix itself. I was asked to see the patient. I did discuss possibly doing a diagnostic laparoscopy as I thought the possibility of appendicitis was certainly possible. By the time I saw the patient she stated that she was actually feeling much better and would prefer to go home and stated that she would return to the emergency room if her symptoms return or worsen. After lengthy discussion we gave her the okay to go home. Unfortunately her symptoms slowly worsened throughout the afternoon and evening and she again presented to the emergency room this morning. Her white blood cell count continue to remain normal. She did describe some subjective fevers and chills. I recommended a laparoscopic appendectomy and the patient was admitted. She was brought to the operating room today following informed consent.. She was placed supine the operative table with arms outstretched arm boards. General anesthesia was induced. Once adequately sedated the abdomen is then prepped and draped in the usual sterile manner. 5 mm incision was made just below the umbilicus which a 5 mm trocar was placed optically. This was placed without incident once in place the abdomen send fully insufflated with CO2 gas 5 mm 0 degree scope was inserted. There were no signs of bowel or vascular injury. Next a 5 mm trocar as well as a 12 mm trocar were placed on the left side of the abdomen. Both of these were placed under direct visualization. Bowel graspers were then inserted. The cecum was identified and was reflected in a cephalad direction. The appendix was identified. This was somewhat lateral and retrocecal. It was very short. It was inflamed mildly. No evidence of perforation. A [place] dissector was then used to create a small window in the mesentery near the base the appendix. A HAKAN stapler was fired across the base the appendix flush with the cecum. 2 vascular loads were used to go across the mesoappendix. The specimen was then placed into a bag and brought out through the 10 mm trocar site. The trocar was then replaced. The right lower quadrant was then irrigated. There was 1 staple line that required cauterization to ensure hemostasis. After this the fascia at the 10 mm trocar site was closed using 0 PDS with a the palate guide. The remaining trocars were opened up and insufflation was allowed to escape. Local anesthetic was injected each incisions incisions were then closed with 5-0 Vicryl. Skin glue was applied as dressing. She was awakened anesthesia and taken the PACU in good condition. Surgical Findings: Mild early appendicitis Complications Complications: No Admit VTE Documentation VTE Present on Admission: No VTE Mechan Device Prophylaxis: SCD's VTE Pharm Prophylaxis ordered?: No Reason prophylaxis not ordered: Treatment Not Indicated
--- NOTE | 2024-07-23 14:23 | PCM.DC.SUM ---
Providers Date of Admission: 07/23/24 Date of Discharge: 07/23/24 Primary Care Physician: No Primary Care Phys Reason For Visit: RLQ PAIN Diagnosis Discharge Diagnosis (1) Acute appendicitis: Status: Acute Code(s): K35.80 - Unspecified acute appendicitis Plan: The patient is a 39-year-old female with right lower quadrant pain. I suspect acute appendicitis of a mild nature. As explained yesterday we have a very low threshold to proceed with diagnostic laparoscopy/appendectomy if were concerned about appendicitis. Since her right lower quadrant pain increased and fevers developed, I have recommended a laparoscopic appendectomy as treatment. We discussed the details of the planned procedure and she wishes to proceed. Surgery will begin momentarily. Medications at Discharge Home Medications oxycodone-acetaminophen 5 mg-325 mg tablet (Percocet) 1 tab PO Q8H PRN pain 3 days #7 tabs 07/23/24 Hospital Course Operations appendectomy Summary of Care Provided Minutes Spent on Discharge: 15 Hospital Course: The patient is a 39-year-old female who presented with lower abdominal pain. She originally presented to the emergency room yesterday with these complaints. CT scan was unremarkable for any acute process however a small fecalith was noted near the base the appendix. She actually felt much better in the emergency room and wished to go home. I did see the patient yesterday as well and did offer her the option of doing a diagnostic laparoscopy/lap for scopic appendectomy. She stated that she would prefer to go home and return if her symptoms did not improve. She did go home however her symptoms did worsen throughout the course the day yesterday. She was subsidy admitted and I recommended a laparoscopic appendectomy. This was performed. She tolerated this well. Diet will be advanced and we anticipate discharge to home later this afternoon. Physical Exam Narrative She is awake and alert. No acute distress. Right lower quadrant pain is resolved. Weight / BMI Weight Weight: 163 lb 5 oz Body Mass Index (BMI) 23.4 ABG / Lab / Microbiology Data 07/23/24 06:15 07/23/24 06:15 Laboratory: Laboratory Results - last 24 hr 07/23/24 06:15: WBC 9.6, RBC 4.47, Hgb 13.7, Hct 40.9, MCV 91.5, MCH 30.6, MCHC 33.5, RDW Std Deviation 42.9, RDW Coeff of Fuad 12.9, Plt Count 242, MPV 10.3, Immature Gran % (Auto) 0.300, Neut % (Auto) 63.1, Lymph % (Auto) 21.6, [place] % (Auto) 12.9 H, Eos % (Auto) 1.6, Baso % (Auto) 0.5, Absolute Neuts (auto) 6.0, Absolute Lymphs (auto) 2.07, Nucleated RBC % 0, Sodium 137, Potassium 3.6, Chloride 104, Carbon Dioxide 30.0, Anion Gap 3 L, BUN 8, Creatinine 0.64, Estim Creat Clear Calc 128.88, Est GFR (MDRD) Af Amer 133, Est GFR (MDRD) Non-Af 110, BUN/Creatinine Ratio 12.5, Glucose 104, Lactic Acid 0.7, Calcium 8.7 D/C Instructions Discharge Diet: Light diet - advance as tolerated Discharge Activity: May Shower Ice area for (Minutes): 30 Lifting Restrictions: Recommend keeping lifting under 20 pounds for about 3 to 4 weeks Call your doctor if your incision/area has: Continuous Slow Oozing, Sudden Increased Bleeding, Increased Pain/ Swelling, Increased Redness, Foul Smelling Discharge and Swelling at the incision site Call your doctor if you observe: Fever of 101 or Higher Remove Dressing in: leave until fall off Cleanse incision/area with: Soap & Water DC O2, CPAP, BIPAP Needs Home O2 Discharge instructions: No Please Follow Up With: Chetan Medrano MD When: 2 weeks Meaningful Use Info Meaningful Use Meaningful Use Diagnoses (Choose all that apply): None applicable Ischemic Stroke Statin Dosing Therapy Reference: STATIN DOSE THERAPY REFERENCE: * Patients > 75 years receive moderate or high dose statin therapy. * Patients 75 years or YOUNGER should receive HIGH intensity statin dose unless contraindicated. You will be required to document reason for non-treatment if statin daily dose does not meet guidelines. HIGH DOSE STATIN THERAPY DAILY Atorvastatin > than or = to 40 mg Rosuvastatin > than or = to 20 mg Amlodipine + Atorvastatin > than or = to 2.5/40 mg Ezetimibe + Simvastatin 10/80 mg Simvastatin 80mg Discharge Plan Admission Admit Date/Time: 07/23/24 06:22 Primary Reason for Your Visit: Appendicitis Attending Provider: Chetan Medrano Primary Care Provider: Care Physician,No Primary Discharge Orders/Prescriptions Prescriptions: New oxycodone-acetaminophen [Percocet] 5-325 mg tablet 1 tab PO Q8H PRN (Reason: pain) 3 Days Qty: 7 0RF Referrals / Follow Up: Care Physician,No Primary [Primary Care Provider] - Disposition Disposition (needs filled in before D/C Order can be placed): Home, Self Care
[2024-07-23] MEDS: Morphine 2 MG/ML Syringe IV ×2 (14:36→19:45)
[2024-07-23] MEDS: Acetaminophen 500 MG Tablet 1000 MG PO ×2 (16:22→22:37)
[2024-07-23] MEDS: oxyCODONE 5 MG Tablet PO (17:30)
[2024-07-23] MEDS: Ketorolac 30 MG/ML Syringe IV (22:38)
[2024-07-24 00:35] VITALS: BP 94/58; PULSE 64; RESP 16; TEMP 36.6; O2SAT 97
[2024-07-24 04:29] VITALS: BP 87/55; PULSE 64; RESP 16; TEMP 36.6; O2SAT 98
[2024-07-24] MEDS: Ketorolac 30 MG/ML Syringe IV ×2 (06:14→13:53)
[2024-07-24] MEDS: Acetaminophen 500 MG Tablet 1000 MG PO ×2 (06:14→13:53)
[2024-07-24] MEDS: Piperacil/Tazobactam 3.375 GM in 0.9% Normal Saline (50mL MB+) 50 ML IV (06:15)
[2024-07-24 06:20] VITALS: BP 90/57; PULSE 66; RESP 16; TEMP 36.4; O2SAT 98
[2024-07-24 08:27] LABS: Absolute Lymphocyte Count 1.48 X10^3/uL (0.83-4.51); Absolute Neutrophil Count 3.1 X10^3/uL (2.0-7.7); Basophil# 0.02 X10^3/uL; Basophil% 0.4 % (0-1); Eosinophil# 0.08 X10^3/uL; Eosinophils% 1.5 % (0-5); Hemoglobin 11.5 g/dL (12.0-15.0); Lymphocyte # 1.48 X10^3/ul (0.83-4.51); Lymphocyte % 27.6 % (19-41); Mean Corp Hgb Conc 32.9 g/dL (32-36); Mean Corpuscular Hgb 30.6 pg (27.0-32.0); Mean Corpuscular Volume 93.1 fL (81-99); Monocyte# 0.63 X10^3/uL; Monocyte% 11.8 % (0-10); NRBC Flagged by Analyzer 0 % (0-5); Neutrophil # 3.14 X10^3/uL (2.7-7.7); Neutrophil % 58.5 % (47-70); Platelet Count 195 K/mm3 (150-450); RBC Distribution Width CV 12.9 % (11.6-14.6); RBC Distribution Width SD 44.1 fl (35.1-43.9); Red Blood Count 3.76 M/mm3 (4.2-5.4); White Blood Count 5.4 K/mm3 (4.4-11.0)
[2024-07-24 08:45] VITALS: BP 103/65; PULSE 69; RESP 16; TEMP 36.6; O2SAT 100
--- NOTE | 2024-07-24 10:21 | EX.CON.LACT ---
Assessment & Plan Assessment/Plan (1) Care and examination of lactating mother: PLAN: Plan as below. HPI Consult Data Date of Consult: 07/24/24 HPI Narrative HPI Narrative: NYDIA CLAROS, is a 39 F who presents for medication questions with . History provided by the patient. [facility] Medical History (Updated 07/24/24 @ 10:27 by Yesenia Calderon FOOTWEAR SALES REPRESENTATIVE, FOOTWEAR SALES REPRESENTATIVE-C) Care and examination of lactating mother Kidney stone Pyelonephritis Home Medications ?Medication ?Instructions ?Recorded ?Last Taken ?Type oxycodone-acetaminophen 5 mg-325 1 tab PO Q8H PRN pain 3 days #7 07/23/24 Unknown Rx mg tablet (Percocet) tabs Allergy/AdvReac Type Severity Reaction Status Date / Time No Known Allergies Allergy Verified 07/23/24 05:52 Family History Grandfather Diabetes Grandmother Diabetes Hypertension Social History household members: spouse Smoking Status: Never smoker substance use type: does not use ROS Constitutional Constitutional: Reports other Details: patient wanting to make sure home medications safe with nursing, has been pumping and discarding milk, plans for discharge this afternoon, baby is 9 months, feeding on demand Exam General alert and no apparent distress Skin normal color IBCLC Feeding Assessment Feeding Plan Feeding Plan: Reviewed current inpatient medications and discharge medications with patient. Able to save milk and nurse when discharged and home with baby. Patient verbalizes understanding and will call in to for any further questions or concerns. Will send up milk storage bags in case patient needs to pump one additional time prior to discharge. Charges/Coding Visit Charges Inpatient E&M: 22857 Init Hosp L1
[2024-07-24] MEDS: 0.9% Saline Lock 10 ML Syringe IV ×2 (10:46→13:54)
[2024-07-24] MEDS: oxyCODONE 5 MG Tablet PO (10:46)
--- NOTE | 2024-07-24 12:01 | CHAPLAIN ---
Type of Pastoral Visit _x__ Initial Visit ___ Follow-up Visit ___ On-call Visit ___ General Patient Visit ___ Spiritual Assessment ___ Family Conference ___ Bereavement ___ Rapid Response ___ Code Blue ___ Other (describe below) Pastoral Care Referral From _x__ Patient ___ Family ___ Nurse ___ Physician ___ Sql Ssrs Developer ___ Seed Sales Manager ___ Other (describe below) Sacrament/Intervention _x__ Active listening ___ Anointing ___ Buddhism ___ Bereavement ___ Communion ___ Nara exploration ___ _x__ Life review _x__ Prayer ___ Reconciliation ___ Sacrament of Sick ___ Supportive presence ___ Wedding ___ Other (describe below) Pastoral Comments patient is welcoming and expresses appreciation for the service of spiritual care in the hospital; pt is an immigrant professional and speaks of [place] experience in the [place] and [place] here and [place] the [place]; pt does not have a moravian community of her particular nara in this area but is open to receiving Quaker/Zoroastrianism support as that is closest to her background; pt expresses her gratitude for kindness and care of everyone in this hospital; presence and prayer are welcomed and given
[2024-07-24 13:51] VITALS: BP 97/61; PULSE 63; RESP 16; TEMP 36.5; O2SAT 96
== END 2024-07-24 16:02 | disposition home or self-care (01) ==
LOC: ED 06:25 → MS3 06:27
PROVIDERS: Admitting Provider Surgery; Emergency Provider Emergency Medicine; Visit Provider Surgery
PROC: 0DTJ4ZZ Resection of Appendix, Percutaneous Endoscopic Approach (ICD-10-PCS; CPT 44970; principal; 2024-07-23 12:30)
DX: K35.80 Unspecified acute appendicitis (principal)
CPT/HCPCS: 44970; 00840; 80048; 83605; 85025; 88304; 94668; 96365; 96366; 96375; 96376; 99221; 99284; A4216; G0378; J2405

== ENCOUNTER 2024-07-25 22:18 | Emergency (ER) | payer OTHER, SELFPAY ==
[2024-07-25 22:18] VITALS: BP 138/90; PULSE 86; RESP 16; TEMP 37; O2SAT 96; BMI 25.0
[2024-07-25 22:46] VITALS: BP 118/92; PULSE 71; RESP 16; TEMP 36.4; O2SAT 99
[2024-07-25 23:20] VITALS: BP 118/94; PULSE 69; RESP 16; TEMP 36.4; O2SAT 97
[2024-07-25] MEDS: Morphine 4 MG/ML Syringe IV (23:41)
[2024-07-25] MEDS: Ondansetron 4 MG/2 ML Vial IV (23:41)
--- NOTE | 2024-07-25 23:50 | RAD_ITS ---
INDICATION: abd pain S/P surgery EXAMINATION/TECHNIQUE: X-RAY - XR Abdomen Series W/ Chest 1 View COMPARISON: Prior study dated: Chest x-ray 01/05/2022 FINDINGS: AP supine and upright views of the abdomen, and upright view of the chest. Bowel gas pattern is normal. There is no bowel obstruction or free intraperitoneal air. Moderate amount of stool throughout the colon. No abnormal mass or calcification is seen. Chest: Minimal right pleural effusion. No infiltrates. No pneumothorax. Cardiac silhouette is normal size. RAD/Acute Abdomen Inc Chest IMPRESSION: Minimal right pleural effusion. No bowel obstruction. Electronically Signed: Santa Sloan MD at 0:36 EST ,
[2024-07-26] VITALS: BP 113/88; PULSE 60; RESP 16; TEMP 36.4; O2SAT 99
[2024-07-26 00:05] LABS: AST(SGOT) 27 U/L (15-37); Alanine Aminotransfer ALT/SGPT 44 U/L (13-56); Albumin, Serum 3.4 g/dL (3.2-5.0); Alkaline Phosphatase 49 U/L (45-117); Anion Gap 2 (5-15); BUN 8 mg/dL (7-18); BUN/Creat Ratio 15.2 RATIO (10-20); Bilirubin, Direct 0.08 mg/dL (0.00-0.30); Chloride 103 mmol/L (98-107); Creatinine, Serum 0.53 mg/dL (0.55-1.02); EST Glomerular Filtration Rate 138 mL/min (>60); Est Glom Filt Rate - Afr Amer 167 mL/min (>60); Estimated Creatinine Clearance 155.63 ml/min; Globulin 3.4 g/dL (2.2-4.2); Glucose 106 mg/dL (74-106); Lipase 23 U/L (13-75); Potassium 3.7 mmol/L (3.5-5.1); Protein, Total 6.8 g/dL (6.4-8.2); Sodium Level 136 mmol/L (136-145)
[2024-07-26 00:11] LABS: Absolute Lymphocyte Count 2.54 X10^3/uL (0.83-4.51); Absolute Neutrophil Count 2.3 X10^3/uL (2.0-7.7); Basophil# 0.02 X10^3/uL; Basophil% 0.3 % (0-1); Eosinophil# 0.19 X10^3/uL; Eosinophils% 3.3 % (0-5); Hematocrit 37.5 % (37-47); Hemoglobin 12.4 g/dL (12.0-15.0); Lymphocyte # 2.54 X10^3/ul (0.83-4.51); Lymphocyte % 44.1 % (19-41); Mean Corp Hgb Conc 33.1 g/dL (32-36); Mean Corpuscular Hgb 30.5 pg (27.0-32.0); Mean Corpuscular Volume 92.1 fL (81-99); Mean Platelet Vol. 10.4 fl (6.2-12.0); Monocyte# 0.71 X10^3/uL; Monocyte% 12.3 % (0-10); NRBC Flagged by Analyzer 0 % (0-5); Neutrophil # 2.29 X10^3/uL (2.7-7.7); Neutrophil % 39.8 % (47-70); Platelet Count 236 K/mm3 (150-450); RBC Distribution Width CV 12.7 % (11.6-14.6); RBC Distribution Width SD 43.1 fl (35.1-43.9); Red Blood Count 4.07 M/mm3 (4.2-5.4); White Blood Count 5.8 K/mm3 (4.4-11.0)
--- NOTE | 2024-07-26 00:49 | EX.ED.DYSGE1 ---
HPI History of Present Illness Chief Complaint: Abd Pain Informant: patient Narrative Narrative: Patient is a 39-year-old female who was recently admitted for acute appendicitis and underwent surgery. She states that the surgery was relatively uneventful and she returned home the next day. She states she has been doing well but has noticed some pain developing in the upper abdomen this evening that was not responding to her medication and with concern for potential postsurgical complication or infection she presents for evaluation [facility] Medical History (Updated 08/03/24 @ 00:01 by Dale Burnett) Care and examination of lactating mother Kidney stone Pyelonephritis Home Medications ?Medication ?Instructions ?Recorded ?Last Taken ?Type oxycodone-acetaminophen 5 mg-325 1 tab PO Q8H PRN pain 3 days #7 07/23/24 Unknown Rx mg tablet (Percocet) tabs Allergy/AdvReac Type Severity Reaction Status Date / Time No Known Allergies Allergy Verified 07/25/24 22:19 Family History Grandfather Diabetes Grandmother Diabetes Hypertension Social History household members: spouse Smoking Status: Never smoker substance use type: does not use ROS ROS ED Constitutional Constitutional ED: Denies chills or fever(s) Eyes Eyes: Denies change in vision ENT ENT ED: Denies sore throat Cardiovascular Cardiovascular: Denies chest pain Respiratory/Chest Respiratory/Chest: Denies cough or dyspnea Gastrointestinal Gastrointestinal: Reports abdominal pain and nausea; Denies diarrhea or vomiting Genitourinary Genitourinary ED: Denies dysuria Musculoskeletal Musculoskeletal: Denies myalgias Integumentary Denies rash Neurologic Neurologic: Denies headache(s) Hematologic/Lymphatic Hematologic/Lymphatic: Denies easy bleeding or easy bruising EXAM Physical Exam Const Vital Signs: 07/25/24 22:18 07/25/24 22:46 07/25/24 23:20 Temperature 98.6 F 97.5 F L 97.5 F L Temperature Source Oral Oral Oral Pulse Rate 86 71 69 Respiratory Rate 16 16 16 Blood Pressure 138/90 H 118/92 H 118/94 H Blood Pressure Mean 106 100 102 Pulse Ox 96 99 97 Oxygen Delivery Method Room Air Room Air Room Air 07/26/24 00:00 Temperature 97.5 F L Temperature Source Oral Pulse Rate 60 Respiratory Rate 16 Blood Pressure 113/88 H Blood Pressure Mean 96 Pulse Ox 99 Oxygen Delivery Method Room Air Positive well nourished and well developed General Appearance ED: well developed; Negative for pallor HEENT HEENT Narrative: Normocephalic atraumatic No signs of infection noted in the posterior pharynx Eyes PERRL and EOMs intact bilaterally General Eye ED: Negative for scleral icterus Neck supple Resp normal respiratory effort and clear to auscultation bilaterally Cardio regular rate and regular rhythm Rate: other Other Details: Heart is regular rate and rhythm without murmurs rubs or gallop Radial and carotid pulses are equal and symmetric GI non-distended and no masses GI Narrative: Abdomen is soft and nondistended with hypoactive bowel sounds. There is mild pain with palpation diffusely greatest in the upper abdomen without voluntary guarding or rigidity or pulsatile mass Auscultation: hypoactive bowel sounds Palpation: soft Back/Spine no CVA tenderness Extremity normal to inspection Extremity Narrative: No asymmetric edema no pitting edema negative Homans' sign bilaterally Neuro oriented x3, CN's II-XII intact bilaterally and no sensory deficits noted Sensorium / Orientation: alert Motor Exam: strength 5/5 throughout Psych Mood & Affect: anxious Skin no rashes or lesions noted Skin Narrative: Abdominal wounds are clean dry and intact without secondary findings to suggest infection General Skin Exam: Negative for jaundice or pallor MDM MDM MDM Narrative Medical decision making narrative: Patient arrived to the ER mildly hypertensive but otherwise with stable vitals. With her recent surgery and reported abdominal pain there is concern for ileus versus obstruction versus perforation versus postoperative infection. Secondary to this basic labs were obtained. White count is normal there is no left shift. Lipase is normal going against pancreatitis and liver enzymes are normal going against a biliary colic or acute cholecystitis. X-ray confirmed no free air or perforation or obstruction. After receiving treatment in the ER the patient reported improvement of symptoms and is therefore otherwise safe for discharge History & Record Review Discussion w/independent historian: Patient Lab Data Attestation: I reviewed the patient's lab results. Labs: Laboratory Results - last 24 hr 07/25/24 22:52 WBC 5.8 RBC 4.07 L Hgb 12.4 Hct 37.5 MCV 92.1 MCH 30.5 MCHC 33.1 RDW Std Deviation 43.1 RDW Coeff of Fuad 12.7 Plt Count 236 MPV 10.4 Immature Gran % (Auto) 0.200 Neut % (Auto) 39.8 L Lymph % (Auto) 44.1 H [place] % (Auto) 12.3 H Eos % (Auto) 3.3 Baso % (Auto) 0.3 Absolute Neuts (auto) 2.3 Absolute Lymphs (auto) 2.54 Nucleated RBC % 0 Sodium 136 Potassium 3.7 Chloride 103 Carbon Dioxide 31.0 Anion Gap 2 L BUN 8 Creatinine 0.53 L Estim Creat Clear Calc 155.63 Est GFR (MDRD) Af Amer 167 Est GFR (MDRD) Non-Af 138 BUN/Creatinine Ratio 15.2 Glucose 106 Calcium 9.0 Total Bilirubin 0.20 Direct Bilirubin 0.08 AST 27 ALT 44 Alkaline Phosphatase 49 Total Protein 6.8 Albumin 3.4 Globulin 3.4 Lipase 23 Radiography Diagnostic Testing: Clinical Impression(s) from Imaging Studies Acute Abdomen Series 07/25/24 23:50 IMPRESSION: Minimal right pleural effusion. No bowel obstruction. Electronically Signed: Santa Sloan MD at 0:36 EST , Acute abdominal series with 1 view chest as interpreted by the emergency medicine physician reveals a nonspecific nonobstructive bowel gas pattern without perforation. Chest x-ray component reveals no acute infiltrate Discharge Plan Triage Chief Complaint: Abd Pain ED Provider: Praveen Colón Dx/Rx/DC Orders Clinical Impression: Postoperative abdominal pain, Constipation Instructions: Abdominal Pain, ED Constipation (Adult) Prescriptions: No Action oxycodone-acetaminophen [Percocet] 5-325 mg tablet 1 tab PO Q8H PRN (Reason: pain) 3 Days Qty: 7 0RF Primary Care Provider: Care Physician,No Primary Referrals: Care Physician,No Primary [Primary Care Provider] - Activity Restrictions/Additional Instructions: Your workup today revealed no signs of postoperative infection or perforation. It did show a moderate amount of stool consistent with constipation. You will need to continue your pain medication because of the recent surgery but in order to combat the constipation please take MiraLAX twice a day and also use Colace twice a day. If your stool becomes liquidy then you may decrease the Colace and MiraLAX. Your symptoms should be improving over the next 48 to 72 hours but if you have worsening pain or develop a fever or any further concerns return to the ER for repeat evaluation Print Language: Korean Disposition Disposition: Home, Self Care Discharge Date/Time: 07/26/24 01:21
[2024-07-26 00:58] VITALS: BP 120/86; PULSE 63; RESP 16; TEMP 36.4; O2SAT 100
[2024-07-26] MEDS: Docusate Sodium 100 MG Capsule PO (01:17)
== END 2024-07-26 01:21 | disposition home or self-care (01) ==
PROVIDERS: Emergency Provider Emergency Medicine; Visit Provider Emergency Medicine
DX: G89.18 Other acute postprocedural pain (principal); R10.9 Unspecified abdominal pain; K59.00 Constipation, unspecified; Z87.442 Personal history of urinary calculi
CPT/HCPCS: 74022; 80048; 80076; 83690; 85025; 96374; 96375; 99284; A4216; J2405